=== PATIENT | female | born 1950 | race Caucasian/White ===

== ENCOUNTER 2022-12-12 17:30 | Outpatient (RCR) | payer SELFPAY | END 2022-12-19 23:59 | LOC: NS 17:30 | DX: Z71.3 Dietary counseling and surveillance (principal); E11.9 Type 2 diabetes mellitus without complications ==

== ENCOUNTER 2023-01-18 07:08 | Observation (INO) | payer MEDICARE, SELFPAY ==
--- NOTE | 2023-01-12 13:58 | PCM.HP.BLA ---
History and Physical History and Physical? Patient Name: Margo Zamarripa : 1950 From:? PHOEBE PARIKH PA-C? DATE OF PRE-OPERATIVE EXAM: 01/11/2023 DATE OF SURGERY:? 01/18/2023 SCHEDULED PROCEDURE:? Robotic-assisted left total hip arthroplasty HISTORY OF PRESENT ILLNESS: Preoperative history and physical exam was performed on January 11, 2023.? This is a 72-year-old female who was initially scheduled to undergo a robotic-assisted left total hip arthroplasty on December 20, 2022.? Surgery was initially canceled as she had vaginal bleeding.? She was then worked up and we now have appropriate clearance from the primary care physician.? We are able to proceed forward with surgery now.? Patient has had ongoing pain for over 2 years with her left hip.? Pain has been constant, intermittent, sharp.? She gets left groin pain.? Pain is increased with walking, standing and going up and down stairs.? Patient states the pain has significantly affected her activities of daily living including leisurely walks and shopping.? She has had a previous left hip intra-articular injection on September 16, 2022 which only gave her only 2 weeks of any symptom relief.? Patient denies past history of surgery on the left hip.? She also denies any recent chest pain, shortness of breath, fevers chills or recent infections.? No past history of DVT or pulmonary embolism.? After failing conservative measures and discussing all treatment options was Dr. Won Newman, the patient does wish to proceed with a robotic-assisted left total hip arthroplasty.? Patient has medical exam pertinent for gastroesophageal reflux disease.? She also has significant low back pain with spinal stenosis.? She has had previous surgeries on her lumbar spine.? We have obtain surgical clearance from the primary care provider Marcia Estrella. REVIEW OF SYSTEMS: Review Of Systems: Constitutional: Denies anorexia, change in appetite, fever, difficulty sleeping, weight change. Cardiovasular: Reports irregular heartbeat, but denies chest pain, heart murmur and peripheral vascular disease. Respiratory: Denies asthma, cough, pneumonia, sleep apnea, shortness of breath, tuberculosis and wheezing. Gastrointestinal: Reports heartburn, but denies constipation, diarrhea, nausea, rectal itching, bloody stools and vomiting. Genitourinary: Denies incontinence. Musculoskeletal: Reports leg swelling and pain, but denies trouble walking and weakness. Skin: Denies Raynaud's, history of shingles and tattoo. Neurological: Reports numbness/tingling but denies ambulatory dysfunction, dizziness and tremor. Psychiatric: Denies anxiety, depression, insomnia, mental illness and stress. Hematologic/Lymphatic: Denies anemia, bleeding/bruising tendency and past transfusion. Reviewed and updated. PAST MEDICAL HISTORY: Advance Care Plan: No Advance Directives Effective Date: 09/12/2022 Past Medical History: Medical Problems: Irregular Heart Beat, Acid Reflux Accidents: None Surgical Hx: Tonsillectomy - (1973) [facility] [place] Removed - (1994) [facility] Section - (1987) [facility] Laproscopy - (1976) [facility]-? FOR INFERTILITY ISSUES Carpal Tunnel Release RT - 02/22/13-[facility] Knee Replacement RT - (2018) [facility] ? Hernitated Disc Surgery - (05/2021) [facility] DR.SCOTT FERMIN? Spinal Stenosis Surgery - (2021) [facility] DR.SCOTT FERMIN? Left Hip Fluoroscopic-Guided Intraarticular Injection - (09/16/2022) DR. NEWMAN @ [facility]? Cataracts - (2022) LT & RT? Anesthesia Complications: Nausea Assistive Devices: None Reviewed and updated. 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 Personal Habits:? Cigarette Use: Never Smoked Cigarettes.Smokeless Tobacco: Never Used Smokeless Tobacco.E-Cigarette Use: Never used.Alcohol: Denies use.Drug Use: Denies Use.Enjoy Exercising: Exercises 1-3 X/Week. Reviewed, no changes. VITALS: Ht: 72 Wt: 202lb Wt k.627 BMI: 27.4 BP: 134/78 Pulse: 72 Resp: 13 T: 97.5 T: 36.4C Pain Level: 2 O2SatR: 94 ALLERGIES: No Known Drug Allergy? MEDICATIONS: Tiazac 120 mg 1 tab daily, Digoxin 0.25 mg 1 tab daily, Vitamin C? 1 tab daily, Aspirin 81 81 mg takes 1 tablet by mouth every other day, Vitamin D3? 1 PO qdaily, CV[facility] Adult 50+ Probiotic? 1 PO qdaily, Venlafaxine HCL ER 75 mg 1 PO qdaily, Omeprazole 20 mg 1 PO qdaily PRE-OP EXAM:? General appearance:NORMAL? ? ? Other: Eyes: Conjunctivae and lids: NORMAL? Pupils: ERR Ears, Nose, Mouth, and Throat: NORMAL? Other: Inspection of lips, teeth and gums: NORMAL? ?Other: Neck: Examination of neck: no masses noted. Respiratory: Assessment of respiratory effort: NORMAL? ?Other: ?Auscultation of lungs: clear to auscultation no wheezes, rhonchi or rales. Cardiovascular:? Auscultation of heart: regular rate and rhythm, no murmurs, gallops or rubs. PHYSICAL EXAMINATION: Patient does walk with a limping gait.? Left hip is without erythema or signs of infection.? Range of motion: Flexion 105, internal rotation 10, external rotation 35.? She has increased groin pain with range of motion.? No significant tenderness over the lateral hip.? Sensation intact to light touch. IMAGING STUDIES: Previous x-rays and MRI of the hip are consistent with stage III osteoarthritis with chondral erosion and labral tearing.? Lumbar images also revealed fusion and left-sided disc protrusions and foraminal stenosis. IMPRESSION: 1.? Left hip osteoarthritis 2.? Gastroesophageal reflux disease 3.? Previous lumbar surgery 4.? Unspecified arrhythmia PLAN: Dr. Won Newman did discuss and review with the patient all treatment options including surgical versus nonsurgical options.? Patient does wish to proceed with the above-stated procedure.? Potential risks, benefits, and complications of the procedure were discussed in detail including but not limited to , infection, nerve and blood vessel damage, persistent pain, numbness, tingling, paresthesias, blood clot, pulmonary embolism, and requirement for possible further surgery.? The patient expressed full understanding and has no further questions for the doctor.? Patient does agree to proceed with the above-stated procedure and has signed the surgery consent form. POST-OP MEDICATION PLAN: DVT Prophylaxis:? Aspirin 81 mg twice daily for 4 weeks postoperatively.? Denies past history of DVT or pulmonary embolism This dictation was created using voice recognition software. Phonetic and/or grammatical errors may exist. ___? I have re-examined the patient.? There are no clinical changes since date of exam. ___? See progress notes for changes. ___? Dictated on admission Date: ? ? ?Time: Signature:
[2023-01-18] VITALS (17 sets, daily range): BP systolic 98–135; BP diastolic 56–75; PULSE 59–73; RESP 14–20; TEMP 35.9–36.9; O2SAT 93–100; BMI 28.7
[2023-01-18] MEDS: Acetaminophen 500 MG Tablet 1000 MG PO ×3 (06:28→22:02)
[2023-01-18] MEDS: Gabapentin 600 MG Tablet PO (06:28)
[2023-01-18] MEDS: Lactated Ringers 1,000 ML 999 ML IV ×2 (06:28→11:21)
[2023-01-18] MEDS: Celecoxib 200 MG Capsule 400 MG PO (06:28)
--- NOTE | 2023-01-18 06:30 | RAD_ITS ---
EXAM: XR LEFT HIP WITH PELVIS WHEN PERFORMED, 1 VIEW CLINICAL INDICATION: PAIN TECHNIQUE: Frontal view of the left hip with pelvis when performed. COMPARISON: No relevant prior studies available. FINDINGS: BONES/JOINTS: Images were obtained intraoperatively. These show placement of a left hip prosthesis. No displaced fracture. No destructive or sclerotic lesions. Note that overlapping bowel shadows may however obscure fine detail. Sacroiliac joint is unremarkable. No widening of the pubic symphysis. SOFT TISSUES: Unremarkable. No soft tissue swelling or gas. RAD/Hip 1 view with Pelvis IMPRESSION: Intraoperative placement of a left hip prosthesis Electronically Signed: Noah Andrew MD at 21:51 EDT ,
[2023-01-18 06:33] LABS: Bedside Glucose 116 mg/dL (74-106)
[2023-01-18 06:40] LABS: Magnesium 2.3 mg/dL (1.6-2.6)
[2023-01-18] MEDS: Lactated Ringers 1,000 ML 75 ML IV (06:56)
[2023-01-18] MEDS: Magnesium 1 GM over 15 mins IV (07:04)
--- NOTE | 2023-01-18 07:04 | OP.PCM_ITS ---
Report of Operation Date of Procedure: 01/18/23 Pre-Operative Diagnosis: Left hip primary osteoarthritis Post-Operative Diagnosis: Left hip primary osteoarthritis Surgery/Procedure Performed:: Left minimally invasive direct anterior hip replacement Description of Surgical Findings:: Stable hip with equal leg lengths Surgeon: Won Newman sports media: Kyile Tadeo Type of Anesthesia: Spinal Special Medications: 2 g Ancef, 1 g TXA at incision, 1 g TXA closure, 10 mg Decadron, joint cocktail (5 mg Duramorph, 30 mL of 0.5% Ropivicaine, 1000 units of epinephrine, 30 mg of Toradol) Specimen's removed: Bony cuts Description of Procedure: Components used: 1. Insignia Teresa femoral stem size 6 high offset 2. Teresa trident 2 acetabular shell size 52 mm 3. Teresa X3 polyethylene 42 E MDM 4. [place] Biolox delta 28 mm, 0 mm femoral head with C taper sleeve 5. Teresa MDM cobalt-chromium metal liner E Brief history operative indications: 72 yo F who failed conservative measures for their hip osteoarthritis. X-rays were consistent with osteoarthritis including joint space narrowing, osteophyte formation and subchondral cysts. Total hip replacement was discussed with the patient with risks and benefits including but not limited to blood loss, DVTs, P Es, neurovascular damage, dislocation, general risks of anesthesia including loss of life. Patient demonstrated an understanding medical clearance is obtained the patient was consented for surgery. Procedure: On the date of procedure the patient's L hip was marked in the preoperative area. Patient was then taken back to the operating room where anesthesia assumed control of the C-spine and airway and administered anesthetic. Patient was transferred to the operating table and placed in the supine position. The hips were placed at the break of the bed and a sacral bump was placed. L The lo wer extremity was then prepped out in a sterile fashion using chlorhexidine while the surgeon scrubbed. The PA was vital in the positioning of the patient. Upon reentering the room the left lower extremity was draped in the standard orthopedic fashion and the incision was marked. A timeout was called and everyone agreed upon the side, the site, the procedure be performed, antibody given, and patient's identity. At this time pins were placed in the iliac crest making skin nicks and blunt dissection down to the iliac crest. After the pins were placed the pelvic array was placed. Following this our attention was directed to the surgical site and incision was made through skin, subcutaneous tissue, and fat down to fascia. The fascia was then incised and the TFL was retracted laterally. A retractor was placed on the lateral border of the femoral neck. Attention was directed to the inferior portion of the approach and all crossing vessels were identified and appropriately coagulated. A retractor was then placed on the medial portion of the femoral neck. The anterior capsule was then cleared of all soft tissue and then H shaped capsulotomy was made. The retractors were then placed inside the capsule. The femoral neck was identified and a cleanup cut was made. At this time a power corkscrew was used to remove the femoral head. Attention was then turned toward the acetabulum where the soft tissues were appropriately retracted and the acetabulum was registered using the [employer] robotic system. After registration the robotic arm was brought in and used to reamed the acetabulum to 52 mm. A 52 mm cup was then selected and impacted into place using the robotic arm at 20 degrees anteversion and 40 degrees abduction. 1 screw was placed in the safe zone. Acetabular liner was impacted into place and locking mechanism was verified. After completing the acetabular cup position placement pins were removed and surgery proceeded to the femur. Attention was then turned to the femur. Soft tissue releases on the medial and lateral femoral neck were appropriately done, the leg was externally rotated and lateralized. A Cooney retractor was placed medially and proximally to the greater trochanter this allowed appropriate visualization and exposure of the femoral canal. Rongeour was then used to remove excess lateral bone. A canal finder and entry broach were used to open the proximal canal. Once we verified we were down the femoral canal we subsequently broached up to a size 6 femur. The appropriate neck was placed in the previously selected head was trialed with a -2.5 mm neck. Traction was pulled and the hip was reduced with internal rotation. Once it was appropriately reduced and stability was checked. There was minimal shuck, equal leg lengths and appropriate stability with hyperextension and external rotation as well as with 90? flexion and internal rotation. Fluoroscopy was then also used to verify the position of the components and leg lengths using the contralateral side for comparison. The trial components were then dislocated the proximal femur was again exposed and the components were removed from the wound. The final components were verified and opened. The wound was copiously irrigated out with normal saline. The acetabulum was checked for any residual debris. The final components were placed and impacted. Traction and internal rotation were again used to reduce the hip. After adequate reduction the hip remained stable with appropriate leg lengths. The final components were once again checked with live fluoroscopy and were found to be satisfactory. We then checked stability of the final implants. Patient had good stability with extension and external rotation. However with flexion she began to lever out and dislocated. Happened unexpectedly the first time we reduced it and then attempted a second time to obtain the point where dislocated. Upon dislocation the second time the femoral head became entrapped posteriorly. We were unable to reduce it even using a bone hook. We then dissociated the head from the stem. The stem was then removed and we had to bluntly dissected into the posterior hip and remove the head by palpation. In order to do this we did release along the acetabular outer table proximal to the origin of the abductors. Once we are able to retrieve this we then replaced the femoral stem remove the polyethylene liner and placed in MDM liner. We then trialed with a +0 which based on medial malleoli gave us an appropriate leg lengths. This gave us stability with extension and external rotation. Also had good stability with flexion and internal rotation to 30 degrees. Once we are happy with this and can flex hip beyond 90 degrees the hip was dislocated and the trial components were removed. Final components were assembled on the back table for the MDM head and the hip was reduced. We also elected to use a C taper liner for the second ceramic head. The wound was then copiously irrigated with normal saline once more, and hemostasis was obtained. Closure was then done using #1 Vicryl runner to close the fascia. A 2-0 vicryl interuppted sutures were used to close the subcutaneous skin. Nylon sutures were used for final skin closure. A Silverlon dressing was placed. Patient was awakened by anesthesia and transferred to the [facility]. Patient was then trans ferred to the PACU for recovery. During the course of the procedure the physician adolescent specialist (PE) played a vital role. Their intimate knowledge of my steps in the procedure aided in safe and expedient completion of the procedure. The PE played a vital rolls in positioning particularly in obtaining the appropriate positioning of the sacral bump. The PE was also vital in the retraction of soft tissues during the exposure and especially the femoral work as this is a vital part of the procedure to prevent complications and fractures. The PE was also vital and protecting soft tissues during times of bony cuts and reaming. He also played a vital role in closure with my direct supervision. The PE was also important during reduction and dislocation of the joint and trials intraoperatively. Postoperative plan: Patient will get 24 hours postop antibiotics. Patient will get in-house physical therapy and will be weight-bear as tolerated. Patient will follow up in office in 2 weeks for a wound check and x-rays. Aspirin 81 mg twice daily. Complications No intraoperative complications Admit VTE Documentation VTE Present on Admission: No VTE Mechan Device Prophylaxis: SCD's and Thigh High VICKI Hose VTE Pharm Prophylaxis ordered?: Yes
[2023-01-18] MEDS: Cefazolin 2 GM in 0.9% Normal Saline 100 ML IV (07:30)
--- NOTE | 2023-01-18 07:30 | HIP_PTH ---
PATIENT: HAYDEN CASTORENA LOC: MS3 U#:[id number] AGE/SX: 72/F ROOM: [facility] RE01/18/[address]: Dr. Won Newman MD : 1950 BED: 1 DIS: 01/19/2023 SPEC #: [id number] RECD: 01/18/23 11:45 STATUS: TA JAINBecky #: [id number] JESSY: 01/18/23 07:[address]: Won Newman DEPT: SURGICAL PATHOLOGY RECD BY: Clarissa Everett ENTERED: 01/18/23 12:53 SP TYPE: TOTAL HIP OTHR DR: Marcia Estrella, RONNI Tissues: Hip, NOS Procedures: Decalcification bone/plaque Surgery Specimen Level IV HEADER OPERATION: DIONICIO, robotic assisted left total hip arthroplasty PRE-OP DIAGNOSIS: Left hip osteoarthritis TISSUE SUBMITTED: Left hip bone and tissue MICROSCOPIC DIAGNOSIS Left hip bone and soft tissue, total hip replacement/resection: Femoral head with mild degenerative osteoarthritic changes. Fragments of fibroadipose tissue and fibroconnective tissue. LISA:avril 01/25/2023 COMMENT Case has been reviewed in consultation with Dr. Echevarria who concurs with the above diagnosis. IDC:AM MICROSCOPIC DESCRIPTION Slides are reviewed. GROSS DESCRIPTION Received is one container labeled with the patient's name and designated bone and tissue left hip. The specimen consists of a kapoor femoral head measuring 4.5 x 4.5 x 4.0 cm. Also present in the container is a detached piece of bone consistent with femoral neck measuring 4.0 x 3.5 x 1.0 cm. The articular surface displays minimal erosion and osteophyte formation. Also present in the specimen container are multiple irregular fragments of bone reamings and pink-yellow soft tissue measuring in aggregate 6.0 x 7.0 x 2.0 cm. Department Operations Manager sections are submitted in two cassettes as follows: 1 - soft tissue, 2 - bone after decalcification. / LISA:avril 01/18/2023 More sections are submitted from femoral head in cassettes 3 & 4 after decalcification. / LISA:avril TC:5 CPT: 14188, 55418
[2023-01-18] MEDS: TXA 1000mg in NS100 100ml (IVPB at Incision) 660 MG IV (07:45)
[2023-01-18] MEDS: dexAMETHasone 10 MG/ML Vial IV (07:47)
[2023-01-18 07:54] LABS: Digoxin Level 0.78 ng/mL (0.80-2.00)
[2023-01-18] MEDS: TXA 1000mg in NS100 100ml (IVPB at Closure) 660 MG IV (10:21)
[2023-01-18] MEDS: JPS (Morphine 10mg/ml) OPERA.SITE (10:26)
--- NOTE | 2023-01-18 11:17 | RAD_ITS ---
HISTORY Post Op -- AP both hips on single khadra/lateral of op hip PACU. TECHNIQUE: XR Hip Unilateral with Pelvis when performed; 2-3 Views. COMPARISON: None. FINDINGS: BONES : No acute fracture identified. No abnormal periprosthetic lucency seen. JOINTS: Left hip in place without dislocation. Blank SOFT TISSUES: Expected postoperative air and edema. RAD/Hip Min 2 Views (Portable) IMPRESSION: Satisfactory postoperative alignment of left hip arthroplasty. Electronically Signed: Joy Copeland MD at 12:20 EDT ,
[2023-01-18] MEDS: Senna/Docusate Sodium 1 Tablet 2 TABLET PO ×2 (13:46→22:02)
[2023-01-18] MEDS: dilTIAZem CD 120 MG Capsule PO (13:46)
[2023-01-18] MEDS: Digoxin 250 MCG Tablet PO (13:46)
[2023-01-18] MEDS: Ondansetron 4 MG/2 ML Vial IV (13:50)
[2023-01-18] MEDS: Famotidine 20 MG Tablet PO (13:51)
[2023-01-18] MEDS: Venlafaxine XR 75 MG Capsule PO (13:51)
[2023-01-18] MEDS: Pantoprazole Sodium 20 MG Tablet PO (13:51)
[2023-01-18] MEDS: Cefazolin 1 GM/50 ML BAG IV (15:08)
[2023-01-18] MEDS: oxyCODONE 5 MG Tablet PO (15:16)
--- NOTE | 2023-01-18 15:37 | PCM.PN.HOSP ---
Subjective Subjective 72-year-old female presents to the hospital with a history of primary hip osteoarthritis on the left status post left anterior hip replacement. Doing well after surgery, pain is controlled. Objective Data Objective Data Vital Signs: Vital Signs Temp Pulse Resp BP Pulse Ox O2 Del Method O2 Flow Rate 97.7 F L 70 18 102/59 L 95 Room Air 2 01/18/23 15:22 01/18/23 15:22 01/18/23 15:22 01/18/23 15:22 01/18/23 15:22 01/18/23 15:22 01/18/23 13:20 Oxygen Flow Rate (L/min) 2 Oxygen Delivery Method Room Air Weight: 206 lb Body Mass Index (BMI) 28.7 Intake & Output: Intake and Output for Last 24 Hours 01/17/23 01/18/23 01/19/23 03:59 03:59 03:59 Intake Total 4087 / 4087 Output Total 200 / 200 Balance 3887 / 3887 Lab / Micro Data Labs: Laboratory Results - last 24 hr 01/18/23 06:06: POC Glucose 116 H 01/18/23 06:15: Magnesium 2.3, Digoxin Cancelled 01/18/23 06:35: Digoxin 0.78 L Radiography Diagnostic Testing: Radiology Impression Hip X-Ray 01/18/23 11:17 IMPRESSION: Satisfactory postoperative alignment of left hip arthroplasty. Electronically Signed: Joy Copeland MD at 12:20 EDT Reading Location ID and State: [facility] / [place] Tel , Service support , Physical Exam Narrative General: Alert, Oriented x3, Cooperative, No apparent distress HEENT: Atraumatic, PERRLA, EOMI, Normocephalic Oral: Moist Mucosa Neck: Supple, No JVD Lungs: Clear to auscultation, Normal air movement, No rhonchi, No wheeze, No rales Cardiovascular: Regular rate, Regular Rhythm, Normal S1, Normal S2, No murmurs Abdomen: Soft, Non Tender, Non-Distended, No Hepato-splenomegaly Extremities: No edema, Capillary Refill Less than 3 Seconds Skin: Dressing CDI Musculoskeletal: No Tenderness to Palpation of Joints or Extremities Neurological: Cranial nerves II-XII grossly intact, Motor Exam 5/5 strength throughout, Sensory exam intact to light touch and pain Psych/Mental Status: Normal Affect, Appropriate Assessment & Plan Assessment/Plan (1) Status post left hip replacement: PLAN: Plan 1. Status post left anterior hip replacement for osteoarthritis ? Pain management per primary ? PT/OT ? DVT prophylaxis per primary ? Discharge planning per primary 2. HTN/A-fib ? This all seems stable, her digoxin level was little bit low this can be monitored as an outpatient ? Continue with her Cardizem and her digoxin 3. GERD ? Stable ? Continue with PPI 4. Anxiety/depression ? Stable ? Continue with Effexor Charges/Coding Visit Charges Office Visits / Consults: 97272 OV L3 New
[2023-01-18] MEDS: Aspirin 81 MG TAB.CHEW PO (17:56)
[2023-01-19] MEDS: Cefazolin 1 GM/50 ML BAG IV (00:25)
[2023-01-19 01:24] VITALS: BP 115/68; PULSE 82; RESP 16; TEMP 36.8; O2SAT 92
[2023-01-19 05:23] VITALS: BP 95/59; PULSE 66; RESP 16; TEMP 36.8; O2SAT 93
[2023-01-19] MEDS: Acetaminophen 500 MG Tablet 1000 MG PO (05:49)
[2023-01-19 06:57] LABS: Hematocrit 35.4 % (37-47); Hemoglobin 11.5 g/dL (12.0-15.0); Mean Corp Hgb Conc 32.5 g/dL (32-36); Mean Corpuscular Hgb 30.6 pg (27.0-32.0); Mean Corpuscular Volume 94.1 fL (81-99); Mean Platelet Vol. 10.6 fl (6.2-12.0); Platelet Count 223 K/mm3 (150-450); RBC Distribution Width CV 13.2 % (11.6-14.6); RBC Distribution Width SD 45.4 fl (35.1-43.9); Red Blood Count 3.76 M/mm3 (4.2-5.4); White Blood Count 17.1 K/mm3 (4.4-11.0)
[2023-01-19 07:19] LABS: Anion Gap 5 (5-15); BUN 15 mg/dL (7-18); BUN/Creat Ratio 15.9 RATIO (10-20); Calcium,Total 8.3 mg/dL (8.5-10.1); Chloride 103 mmol/L (98-107); Creatinine, Serum 0.95 mg/dL (0.55-1.02); EST Glomerular Filtration Rate 62 mL/min (>60); Est Glom Filt Rate - Afr Amer 75 mL/min (>60); Estimated Creatinine Clearance 60.71 ml/min; Glucose 139 mg/dL (74-106); Sodium Level 133 mmol/L (136-145)
[2023-01-19 09:00] VITALS: BP 101/55; PULSE 67; RESP 18; TEMP 36.9; O2SAT 94
[2023-01-19] MEDS: Pantoprazole Sodium 20 MG Tablet PO (09:06)
[2023-01-19] MEDS: Venlafaxine XR 75 MG Capsule PO (09:06)
[2023-01-19] MEDS: Senna/Docusate Sodium 1 Tablet 2 TABLET PO (09:06)
[2023-01-19] MEDS: Ensure Surgery 237 ML LIQUID PO (09:06)
[2023-01-19] MEDS: Digoxin 250 MCG Tablet PO (09:06)
[2023-01-19] MEDS: dilTIAZem CD 120 MG Capsule PO (09:06)
[2023-01-19] MEDS: Aspirin 81 MG TAB.CHEW PO (09:06)
[2023-01-19] MEDS: Famotidine 20 MG Tablet PO (09:06)
--- NOTE | 2023-01-19 09:57 | CASEMGMT ---
Met with patient to complete LEW form. LEW form explained to patient who voiced understanding and signed form. Original form placed in pt?s chart and copy provided to patient. Ghada Cardenas, Discharge Planning Asst.
--- NOTE | 2023-01-19 10:28 | PCM.PN.HOSP ---
Reason for Visit Reason for Visit: Diagnoses Encounter for other preprocedural examination (01/18/23) Presence of left artificial hip joint (01/18/23) Subjective Subjective Feels fine. No new issues. Objective Data Objective Data Vital Signs: Vital Signs Temp Pulse Resp BP Pulse Ox O2 Del Method O2 Flow Rate 36.9 C 67 18 101/55 L 94 Room Air 2 01/19/23 09:00 01/19/23 09:00 01/19/23 09:00 01/19/23 09:00 01/19/23 09:00 01/19/23 09:00 01/18/23 13:20 Oxygen Flow Rate (L/min) 2 Oxygen Delivery Method Room Air Weight: 93.44 kg Body Mass Index (BMI) 28.7 Intake & Output: Intake and Output for Last 24 Hours 01/17/23 01/18/23 01/19/23 23:59 23:59 23:59 Intake Total 4087 / 4587 950 / 950 Output Total 200 / 200 Balance 3887 / 4387 950 / 950 Lab / Micro Data 01/19/23 06:25 01/19/23 06:25 Labs: Laboratory Results - last 24 hr 01/19/23 06:25: WBC 17.1 H, RBC 3.76 L, Hgb 11.5 L, Hct 35.4 L, MCV 94.1, MCH 30.6, MCHC 32.5, RDW Std Deviation 45.4 H, RDW Coeff of Lis 13.2, Plt Count 223, MPV 10.6, Sodium 133 L, Potassium 4.0, Chloride 103, Carbon Dioxide 25.0, Anion Gap 5, BUN 15, Creatinine 0.95, Estim Creat Clear Calc 60.71, Est GFR (MDRD) Af Amer 75, Est GFR (MDRD) Non-Af 62, BUN/Creatinine Ratio 15.9, Glucose 139 H, Calcium 8.3 L Radiography Diagnostic Testing: Radiology Impression Hip/Pelvis X-Ray 01/18/23 06:30 IMPRESSION: Intraoperative placement of a left hip prosthesis Electronically Signed: Noah Andrew MD at 21:51 EDT , Hip X-Ray 01/18/23 11:17 IMPRESSION: Satisfactory postoperative alignment of left hip arthroplasty. Electronically Signed: Joy Copeland MD at 12:20 EDT , Physical Exam Const alert and no apparent distress HEENT head/scalp atraumatic and moist oral mucous membranes Resp normal respiratory effort and no retractions Assessment & Plan Assessment/Plan (1) Irregular heart beat: PLAN: Patient states that she was diagnosed with irregular heartbeat in the mid 90s. Never saw plate painter apprentice but has never been told that she has atrial fibrillation. Reviewed patient had EKGs x2 last month that were both sinus rhythm. Continue with digoxin and diltiazem. Patient states that she has been stable for some period of time. Unless patient has recurrent episodes, no cardiology consultation needed at this time though that could be deferred on outpatient basis. PLAN: Plan Status post left hip replacement. Management per orthopedics. VTE prophylaxis with twice daily aspirin. Charges/Coding Visit Charges Inpatient E&M: 53533 Subs Hosp L2
--- NOTE | 2023-01-19 10:50 | CASEMGMT ---
LIYAH HEART Assessment: Face to Face with pt for initial transition planning/care coordination assessment. LIYAH HEART introduced self and role at [facility], pt voices understanding and consents to assessment. Pt is A/O x4 and answers all questions appropriately at this time. Pt lying in bed in no distress. Care providers, pharmacy, and demographics verified/updated. Admitting Dx: robotic assisted left total hip arthroplasty PCP:Marcia Estrella NP Specialists:Shi Bonilla; surekha Newman Pharmacy[facility]: yes LNOK: Emir Zamarripa, Living Arrangements: Pt lives with in a basement of a two story. Pt states she lives below [facility] and employees usually stay up top. There are 17 steps to enter the basement with a rail. Pt reports she was I in ADL's prior to surgery. Pt denies concerns at home. Transportation: Pt drives self and denies concerns with transportation. Pt will transport her to medical appts until she is able. DME/HHC/SNF: Pt has a sock aid, FWW, toilet riser and environmental lead. Pt has had HHC in the past but is unsure of the name of the agency. Pt denies SNF stays. Pt states no concerns with going home at time of dc. She has outpt therapy set up at [facility] for Monday. Pt states her dtr is an OT and is available should she need anything. Pt states no further concerns/needs. CM to follow. Advised pt to ask CM if any further question/concerns/needs arise, voices understanding. Pt Goal: Home with outpt therapy already set up Plan: Home with outpt therapy already set up
--- NOTE | 2023-01-19 11:43 | PCM.PN.ORT ---
Subjective Subjective The patient was sitting in bed upon examination. Patient denies any chest pain, shortness of breath, dizziness, lightheadedness, nausea or vomiting, or calf pain. Pain is controlled on medications. No adverse overnight events. Patient has tolerated therapy very well. She denies any dizziness or lightheadedness. She has some soreness in the thigh. Denies any significant buttock pain. She states she does wish to try to go home today. Objective Data Objective Data Vital Signs: Vital Signs Temp Pulse Resp BP Pulse Ox O2 Del Method O2 Flow Rate 98.5 F 67 18 101/55 L 94 Room Air 2 01/19/23 09:00 01/19/23 09:00 01/19/23 09:00 01/19/23 09:00 01/19/23 09:00 01/19/23 09:00 01/18/23 13:20 Oxygen Flow Rate (L/min) 2 Oxygen Delivery Method Room Air Weight: 93.44 kg Body Mass Index (BMI) 28.7 Intake & Output: Intake and Output for Last 24 Hours 01/17/23 01/18/23 01/19/23 23:59 23:59 23:59 Intake Total 4087 / 4587 950 / 950 Output Total 200 / 200 Balance 3887 / 4387 950 / 950 Lab / Micro Data 01/19/23 06:25 01/19/23 06:25 Labs: Laboratory Results - last 24 hr 01/19/23 06:25: WBC 17.1 H, RBC 3.76 L, Hgb 11.5 L, Hct 35.4 L, MCV 94.1, MCH 30.6, MCHC 32.5, RDW Std Deviation 45.4 H, RDW Coeff of Lis 13.2, Plt Count 223, MPV 10.6, Sodium 133 L, Potassium 4.0, Chloride 103, Carbon Dioxide 25.0, Anion Gap 5, BUN 15, Creatinine 0.95, Estim Creat Clear Calc 60.71, Est GFR (MDRD) Af Amer 75, Est GFR (MDRD) Non-Af 62, BUN/Creatinine Ratio 15.9, Glucose 139 H, Calcium 8.3 L Radiography Diagnostic Testing: Radiology Impression Hip/Pelvis X-Ray 01/18/23 06:30 IMPRESSION: Intraoperative placement of a left hip prosthesis Electronically Signed: Noah Andrew MD at 21:51 EDT , Hip X-Ray 01/18/23 11:17 IMPRESSION: Satisfactory postoperative alignment of left hip arthroplasty. Electronically Signed: Joy Copeland MD at 12:20 EDT , Physical Exam Narrative Vital signs stable and afebrile. SCDs and VICKI hose are in place bilaterally Left hip is soft and supple. No buttock pain. She does complain of some thigh discomfort Patient is able to plantarflex and dorsiflex actively. Sensation is intact to light touch to saphenous, sural, superficial and deep peroneal, and tibial distribution. Dressing is clean dry and intact. Patient does have underwear in which the elastic band comes across the distal one third of the incision. I did explain to the patient that I would like her to protect this once the dressing has been removed. She can use an ABD, 4 x 4 dressing, clean washcloth at home. She voiced understanding agreement. Negative Homans bilaterally, negative signs and symptoms of DVT. Const alert, oriented x3 and no apparent distress Assessment & Plan Assessment/Plan (1) Status post left hip replacement: PLAN: 1. S/P left direct anterior total hip arthroplasty POD #1 2. Continue Pain Medications: Tylenol, meloxicam, oxycodone. Do not take any other nonsteroidal anti-inflammatories while using meloxicam/Mobic. 3. DVT Prophylaxis: Take 81 mg aspirin twice daily for 4 weeks postoperatively for DVT prophylaxis. Denies past history of DVT or pulmonary embolism 4. PT/OT: Weightbearing as tolerated with walker 5. Lab work has been reviewed and patient currently stable. She does have reactive leukocytosis currently 17.1, afebrile. She did receive Decadron intraoperatively. 6. Continue postoperative medical management per medicine: 7. Encouraged Incentive Spirometry 8. Disposition: Plan will be for probable discharge home this afternoon as long as patient is doing well with physical therapy, pain is controlled, and medically stable. She has outpatient physical therapy established. Patient will follow-up per postoperative instructions. She would like her medications E scribed to [facility] pharmacy in [facility]. Upon discharge she will contact her office with any concerns or questions. She initially did well with physical therapy this morning. She denies any dizziness or lightheadedness. I have reviewed the [place] Automated Rx Reporting System (OARRS) report for this patient for refill pattern and other prescriber involvement as part of the appropriate surveillance for the provision of acute and chronic controlled medications. The report was requested and reviewed on the date of this entry and was considered in the prescribing process. This dictation was created using voice recognition software. Phonetic and/or grammatical errors may exist.
--- NOTE | 2023-01-19 11:48 | PCM.DC ---
Discharge Instructions Diet Discharge Diet: No restrictions Activity Discharge Activity: May Not Drive (while taking narcotic pain medications.) May shower in (days): 1 (only if incision is dry and without drainage. Do NOT soak/submerge in tub/pool/delgadillo/stream/hot tub.)) Ice area for (Minutes): 20 (Every 1-2 hours while awake[address] barrier between ice and skin.) Weight Bearing Status: Weight bearing as tolerated Keep extremity elevated above heart level: Operative Extremity Additional Activity Instructions:: Follow [facility] Post-op Instructions. Once postoperative dressing has been removed only use gentle soap and water over the incision. Do not use any ointments, Neosporin, salves, alcohol pads over the incision for 6 weeks postoperatively. Do not submerge underwater for 6 weeks postoperatively. Wear elastic stockings for 2 weeks. Do NOT use alcohol with narcotic pain medication. Do NOT make important decisions while taking narcotic medication. If you have problems with taking your medication (rash, itching, nausea, etc.) call the office at once. Dressing / Incision Call your doctor if your incision/area has: Continuous Slow Oozing, Sudden Increased Bleeding, Increased Pain/ Swelling, Increased Redness and Foul Smelling Discharge Call your doctor if you observe: Fever of 101 or Higher, Shortness of breath, Chest pain, Calf discomfort and Uncontrolled pain Remove Dressing in: 4 days (Okay to remove dressing on January 23, 2023. Must protect the incision from elastic band on underwear using 4 x 4 dressing, ABD, or clean washcloth.) Additional Dressing/Incision Instructions:: Follow [facility] Post-op Instructions. Once postoperative dressing has been removed, only use gentle soap and water over the incision. Do not use any ointments, Neosporin, salves, alcohol pads over the incision for 6 weeks postoperatively. Do not submerge underwater for 6 weeks postoperatively. Continue with VICKI hose/elastic stockings for 2 weeks postoperatively. May remove at nighttime but needs to be placed back on the leg during the day. Do NOT use alcohol with narcotic pain medication. Do NOT make important decisions while taking narcotic medication. If you have problems with taking your medication (rash, itching, nausea, etc.) call the office at once. Follow Up Care Test Results: Test results from this visit will be discussed in further detail at your follow-up appointment, if applicable. Discharge Plan Admission Admit Date/Time: 01/18/23 07:08 Attending Provider: Won Newman Primary Care Provider: Marcia Estrella NP Consulting Providers: Alan Feldman Discharge Orders/Prescriptions Prescriptions: New acetaminophen 500 mg Tablet 1,000 mg PO Q8 14 Days Qty: 84 0RF Rx Instructions: Do not take more than 3000 mg Tylenol in a 24-hour period. aspirin 81 mg capsule 81 mg PO BIDCM 30 Days Qty: 60 0RF Rx Instructions: Take 81 mg aspirin twice daily for 4 weeks postoperatively for DVT prophylaxis. meloxicam 7.5 mg Tablet 7.5 mg PO BID 30 Days Qty: 60 0RF Rx Instructions: Do not take any other nonsteroidal anti-inflammatories while using meloxicam/Mobic. oxycodone 5 mg Tablet 5 - 10 mg PO Q4H PRN PRN (Reason: Pain Score 4-10) 5 Days Qty: 42 0RF sennosides-docusate sodium [Stool Softener-Stimulant Laxat] 8.6-50 mg Tablet 2 tab PO BID 3 Days Qty: 12 0RF Rx Instructions: Take until first bowel movement, then as needed Continued digoxin 250 mcg (0.25 mg) tablet 250 mcg PO DAILY diltiazem HCl 120 mg capsule,extended release 24 hr 120 mg PO DAILY omeprazole 20 mg capsule,delayed release(DR/EC) 20 mg PO DAILY venlafaxine 75 mg capsule,extended release 24hr 75 mg PO DAILY Referrals / Follow Up: Physical,Therapy [Other] - 01/24/23 10:30 am Trey Tadeo PA-C [Med Staff - [facility]] - 02/02/23 4:00 pm Disposition Disposition (needs filled in before D/C Order can be placed): Home, Self Care
[2023-01-19] MEDS: oxyCODONE 5 MG Tablet PO (11:52)
--- NOTE | 2023-01-19 12:26 | CASEMGMT ---
Social Work SW met with pt and spouse and discussed advance directives. Pt states she just completed both a living will and healthcare POA on Monday. HCPOA names her spouse Emir Zamarripa. SW requested this documents be brought to the hospital for scanning into the medical record. Pt agreeable. NIR Turner
--- NOTE | 2023-01-19 12:26 | PHA.DC.MC.R ---
Pharmacy [facility] has performed discharge medication reconciliation and counseling for this patient. The patient was counseled on the following discharge medications and changes in medications for homegoing were reviewed. 1. TYLENOL 2. ASPIRIN 3. MELOXICAM 4. OXYCODONE 5. SENNA-S The Reason for Use, instructions for use, and potential side effects were reviewed for all new medications. The patient's questions regarding all of their medications were answered. The patient was able to verbally demonstrate an understanding of their discharge medications. The patient's discharge medication list was reviewed for discrepancies and discrepancies were resolved. Patient was counselled by Merry Addison, Francisco Candidate
[2023-01-19 12:30] VITALS: BP 102/54; PULSE 70; RESP 18; TEMP 37; O2SAT 95
== END 2023-01-19 13:04 | disposition home or self-care (01) ==
LOC: ACINP 08:26 → SDC 10:02 → MS3 10:02
PROVIDERS: Anesthesiology; Admitting Provider Specialist; PCP Nurse Practitioner Family; Referring Provider Specialist; Visit Provider Specialist
PROC: 8E0Y0CZ Robotic Assisted Procedure of Lower Extremity, Open Approach (ICD-10-PCS; CPT 27130; principal; 2023-01-18 07:00)
DX: M16.12 Unilateral primary osteoarthritis, left hip (principal); K21.9 Gastro-esophageal reflux disease without esophagitis; M48.061 Spinal stenosis, lumbar region without neurogenic claudication; I49.9 Cardiac arrhythmia, unspecified; Z79.899 Other long term (current) drug therapy
CPT/HCPCS: 27130; S2900; 01214; 36415; 73501; 73502; 76000; 80048; 80162; 82962; 83735; 85027; 88305; 88311; 94668; 96365; 96366; 96375; 97110; 97116; 97162; 97166; 97530; 97535; 99221; 99252; C1776; J7120; G0378; G0463; J2405; J3475

== ENCOUNTER → 2023-03-06 | Outpatient (CLI) | payer MEDICARE, SELFPAY ==
[2023-03-06 15:32] LABS: Erythrocyte Sedimentation Rate 10 mm/hr (0-30)
[2023-03-06 15:34] LABS: Absolute Lymphocyte Count 3.09 X10^3/uL (0.83-4.51); Absolute Neutrophil Count 3.4 X10^3/uL (2.0-7.7); Basophil# 0.04 X10^3/uL; Basophil% 0.5 % (0-1); CRP 4.91 mg/L (0.0-3.0); Eosinophil# 0.26 X10^3/uL; Eosinophils% 3.5 % (0-5); Hematocrit 47.3 % (37-47); Hemoglobin 14.9 g/dL (12.0-15.0); Lymphocyte # 3.09 X10^3/ul (0.83-4.51); Mean Corp Hgb Conc 31.5 g/dL (32-36); Mean Corpuscular Hgb 29.9 pg (27.0-32.0); Monocyte# 0.64 X10^3/uL; Monocyte% 8.5 % (0-10); NRBC Flagged by Analyzer 0 % (0-5); Neutrophil # 3.43 X10^3/uL (2.7-7.7); Neutrophil % 45.6 % (47-70); Platelet Count 328 K/mm3 (150-450); RBC Distribution Width CV 13.5 % (11.6-14.6); RBC Distribution Width SD 46.9 fl (35.1-43.9); Red Blood Count 4.98 M/mm3 (4.2-5.4); White Blood Count 7.5 K/mm3 (4.4-11.0)
== END | disposition home or self-care (01) ==
LOC: MTLAB 12:31
PROVIDERS: PCP Nurse Practitioner Family; Referring Provider Specialist; Visit Provider Specialist
DX: Z96.642 Presence of left artificial hip joint (principal)
CPT/HCPCS: 36415; 85025; 85652; 86140

== ENCOUNTER → 2023-05-10 | Outpatient (CLI) | payer MEDICARE, SELFPAY ==
--- NOTE | 2023-05-10 13:18 | CT_ITS ---
CT LEFT LOWER EXTREMITY WITH 3-D IMAGING CLINICAL INDICATION: LEFT HIP SPRAIN. Recent left total hip replacement. TECHNIQUE: Axial CT images of the LEFT lower extremity was performed without IV contrast material. Coronal and sagittal reformats as well as 3D reformats were provided. RADIATION DOSAGE (If Supplied By Facility): CTDIvol = ( 20.86 ) mGy, DLP = ( 703.13 ) mGycm COMPARISON: FINDINGS: Bones: Osseous structures are normal without evidence of fracture or dislocation. No lytic or blastic osseous masses. The patient is status post left total hip replacement. There is good alignment. Soft Tissues: Mild degree of residual postoperative soft tissue changes overlying the left hip joint. CT/Extremity Lower without Contra IMPRESSION: Status post left total hip replacement. There is good alignment. Mild degree residual deep soft tissue postoperative changes. Electronically Signed: Niles Farley MD at 13:14 EST ,
== END | disposition home or self-care (01) ==
PROVIDERS: PCP Nurse Practitioner Family; Referring Provider Specialist; Visit Provider Specialist
DX: S73.192A Other sprain of left hip, initial encounter (principal); Z96.642 Presence of left artificial hip joint; X58.XXXA Exposure to other specified factors, initial encounter
CPT/HCPCS: 73700

== ENCOUNTER → 2023-06-23 | Outpatient (CLI) | payer MEDICARE, SELFPAY ==
[2023-06-23 12:40] LABS: Absolute Lymphocyte Count 3.17 X10^3/uL (0.83-4.51); Absolute Neutrophil Count 3.1 X10^3/uL (2.0-7.7); Basophil# 0.07 X10^3/uL; Basophil% 0.9 % (0-1); Eosinophil# 0.17 X10^3/uL; Eosinophils% 2.3 % (0-5); Hematocrit 46.3 % (37-47); Hemoglobin 14.6 g/dL (12.0-15.0); Lymphocyte # 3.17 X10^3/ul (0.83-4.51); Mean Corp Hgb Conc 31.5 g/dL (32-36); Mean Corpuscular Hgb 28.3 pg (27.0-32.0); Mean Corpuscular Volume 89.7 fL (81-99); Mean Platelet Vol. 10.1 fl (6.2-12.0); Monocyte# 0.79 X10^3/uL; Monocyte% 10.7 % (0-10); NRBC Flagged by Analyzer 0 % (0-5); Neutrophil % 42.2 % (47-70); Platelet Count 320 K/mm3 (150-450); RBC Distribution Width CV 15.1 % (11.6-14.6); RBC Distribution Width SD 49.9 fl (35.1-43.9); Red Blood Count 5.16 M/mm3 (4.2-5.4); White Blood Count 7.4 K/mm3 (4.4-11.0)
[2023-06-23 12:46] LABS: Erythrocyte Sedimentation Rate 4 mm/hr (0-30)
[2023-06-23 13:36] LABS: CRP < 2.90 mg/L (0.0-3.0); Thyroid Stim Hormone (TSH) 1.46 uIU/mL (0.358-3.74)
== END | disposition home or self-care (01) ==
LOC: LAB 12:16
PROVIDERS: PCP Nurse Practitioner Family; Referring Provider Nurse Practitioner Family; Visit Provider Nurse Practitioner Family
DX: S73.192A Other sprain of left hip, initial encounter (principal); Z96.642 Presence of left artificial hip joint; X58.XXXA Exposure to other specified factors, initial encounter; L65.9 Nonscarring hair loss, unspecified
CPT/HCPCS: 36415; 84443; 85025; 85652; 86140

== ENCOUNTER → 2023-06-27 | Outpatient (CLI) | payer MEDICARE, SELFPAY ==
[2023-06-27] MEDS: Lidocaine 2% (5ml sdv) 5 ML VIAL.MPF INFILT (14:12)
--- NOTE | 2023-06-27 14:21 | PRO.PCM_ITS ---
Procedure Report Date of Procedure: 06/27/23
--- NOTE | 2023-06-27 14:21 | PCM.OP.PRO ---
Procedure Report Date of Procedure: 06/27/23 Assessment & Plan Assessment/Plan (1) Other sprain of left hip, initial encounter: PLAN: PROCEDURE: Fluoroscopic Guided left hip aspiration ORDERING PROVIDER: Dr. Newman INDICATION: Female, 73 years old. Left hip pain status post left hip replacement. PROVIDER: GREG Ivan PROCEDURE: CONSENT: The risks, benefits, and alternatives to the procedure were explained to the patient. The specific risks of bleeding, infection, and neurovascular injury were detailed and accepted. Witnessed informed consent was obtained. TECHNIQUE: The left hip access site was prepped and draped in sterile fashion. 2% Lidocaine was administered subcutaneously for local anesthesia. A 22-gauge spinal needle was positioned under radiographic fluoroscopic localization. Approximately 2 cc of Isovue 300 instilled for localization purposes. Aspiration was then attempted. No fluid was able to be aspirated. The spinal needle was removed, and a dressing was applied. The patient tolerated the procedure well without any immediate complications. IMPRESSION: Successful fluoroscopic guided left hip needle placement for attempted left hip aspiration. No fluid able to be aspirated. Procedures Radiology Radiology Xray Procedures: Inj Asp major Joint - Hip, Knee
== END | disposition home or self-care (01) ==
LOC: US 13:32 → RAD 13:34
PROVIDERS: PCP Nurse Practitioner Family; Referring Provider Specialist; Visit Provider Specialist
DX: S73.192A Other sprain of left hip, initial encounter (principal); Z96.642 Presence of left artificial hip joint; X58.XXXA Exposure to other specified factors, initial encounter
CPT/HCPCS: 20610; 77002

== ENCOUNTER → 2024-10-11 | Outpatient (CLI) | payer MEDICARE, SELFPAY ==
[2024-10-11 12:24] LABS: Absolute Lymphocyte Count 3.41 X10^3/uL (0.83-4.51); Basophil# 0.05 X10^3/uL; Basophil% 0.6 % (0-1); Eosinophil# 0.22 X10^3/uL; Eosinophils% 2.6 % (0-5); Hematocrit 48.9 % (37-47); Lymphocyte # 3.41 X10^3/ul (0.83-4.51); Lymphocyte % 40.6 % (19-41); Mean Corp Hgb Conc 32.7 g/dL (32-36); Mean Corpuscular Hgb 30.4 pg (27.0-32.0); Mean Corpuscular Volume 92.8 fL (81-99); Mean Platelet Vol. 10.9 fl (6.2-12.0); Monocyte# 0.64 X10^3/uL; Monocyte% 7.6 % (0-10); NRBC Flagged by Analyzer 0 % (0-5); Neutrophil # 4.03 X10^3/uL (2.7-7.7); Platelet Count 280 K/mm3 (150-450); RBC Distribution Width CV 14.1 % (11.6-14.6); RBC Distribution Width SD 48.4 fl (35.1-43.9); Red Blood Count 5.27 M/mm3 (4.2-5.4); White Blood Count 8.4 K/mm3 (4.4-11.0)
[2024-10-11 12:38] LABS: Prothrombin Time (Protime)PT. 13.4 SECONDS (11.7-14.9)
[2024-10-11 12:56] LABS: ALB/GLOB Ratio 1.8 RATIO (0.9-2.4); AST(SGOT) 28 U/L (<=31); Alanine Aminotransfer ALT/SGPT 51 U/L (<=34); Albumin, Serum 4.5 g/dL (3.4-4.8); Alkaline Phosphatase 61 U/L (35-104); Anion Gap 13 (5-15); BUN 20 mg/dL (4-19); BUN/Creat Ratio 23.6 RATIO (10-20); Calcium,Total 9.7 mg/dL (7.6-11.0); Carbon Dioxide 23.3 mmol/L (21.0-32.0); Chloride 102 mmol/L (98-108); Creatinine, Serum 0.83 mg/dL (0.70-1.20); Digoxin Level 0.86 ng/mL (0.00-2.00); EST Glomerular Filtration Rate 75 (>60); Globulin 2.5 g/dL (2.2-4.2); Glucose 102 mg/dL (70-99); Potassium 4.5 mmol/L (3.3-5.1); Sodium Level 138 mmol/L (133-145); Total Bilirubin 0.58 mg/dL (0.00-1.30)
[2024-10-11 20:37] LABS: Iron 105 ug/dL (50-170)
[2024-10-11 20:43] LABS: Ferritin 46 ng/mL (22-378); Vitamin B12 229 pg/mL (180-914); Vitamin D,25 Hydroxy 40.4 ng/mL (30-100)
== END | disposition home or self-care (01) ==
LOC: LABSPEC 12:01
PROVIDERS: Internal Medicine; PCP Nurse Practitioner Family; Referring Provider Internal Medicine; Visit Provider Internal Medicine
DX: Z01.818 Encounter for other preprocedural examination (principal); G62.9 Polyneuropathy, unspecified; L65.9 Nonscarring hair loss, unspecified
CPT/HCPCS: 80053; 80162; 82306; 82607; 82728; 83540; 85025; 85610; 85730

== ENCOUNTER → 2024-12-03 | Outpatient (CLI) | payer MEDICARE, SELFPAY | END | disposition home or self-care (01) | PROVIDERS: PCP Internal Medicine; Referring Provider Internal Medicine; Visit Provider Internal Medicine | DX: R94.2 Abnormal results of pulmonary function studies (principal) | CPT/HCPCS: 94060; 94726; 94729 ==

== ENCOUNTER → 2024-12-13 | Outpatient (CLI) | payer MEDICARE, SELFPAY | END | disposition home or self-care (01) | LOC: SL 10:54 | PROVIDERS: PCP Internal Medicine; Referring Provider Internal Medicine; Visit Provider Internal Medicine | DX: R94.2 Abnormal results of pulmonary function studies (principal) | CPT/HCPCS: 94762 ==

== ENCOUNTER 2025-02-19 07:09 | Day surgery (SDC) | payer MEDICARE, SELFPAY ==
--- NOTE | 2025-02-13 16:24 | PAT.ANESEVAL ---
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 When Was Last Pacemaker Check QUESTION #4 FULL TEXT: You/Your Family Experience fever (hyperthermia) with Anesthesia Last Oral Intake Last Oral intake: Last Oral Intake NPO since Meds taken in AM with sips of water? Meds patient instructed to take am of surgery PONV PONV - enginehouse brakeman: PONV - enginehouse brakeman Female Yes 02/13/25 13:00 HX of Motion Sickness No 02/13/25 13:00 HX of N/V After Surgery No 02/13/25 13:00 Non-Smoker Yes 02/13/25 13:00 Duration of Surgery greater No 02/13/25 13:00 than 60 minutes Number of Risk Factors 2 02/13/25 13:00 PONV Score Moderate Risk 02/13/25 13:00 Height & Weight Height & Weight: Anesthesia: Height & Weight Height 5 ft 11 in 01/18/23 13:23 Respiratory Assessment Respiratory Assessment - enginehouse brakeman: Respiratory Tract Infection Hx - enginehouse brakeman Hx Respiratory Tract Infection No 02/13/25 13:00 STOP Sleep Apnea STOP Sleep Apnea - enginehouse brakeman: STOP Sleep Apnea - enginehouse brakeman Hx Hypertension No 02/13/25 13:00 Hx Sleep Apnea No 02/13/25 13:00 CPAP BIPAP Do you snore loudly (louder No 02/13/25 13:00 than talking or can be heard Do you often feel tired/ No 02/13/25 13:00 fatigued/ sleepy during daytime? Has anyone observed you stop No 02/13/25 13:00 breathing during sleep? STOP Results Negative 02/13/25 13:00 QUESTION #5 FULL TEXT : Do you snore loudly (louder than talking or can be heard through closed doors)? 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 Specify any problems Hx of Preganancy in last 3 No 02/13/25 13:00 Months Nurse Filling Out Transfusion DSCHRIBER 02/13/25 13:00 & Questions: Date: 02/13/25 02/13/25 13:00 Time: 13:01 02/13/25 13:00 Patient unable to answer at this time (ie. confused, unrespo /Reproduction History /Reproductive History - enginehouse brakeman: /Reproductive Hx- enginehouse brakeman Hx Now No 02/13/25 13:00 Gestational Age (in weeks): EDC: Hx Hx Para Hx Section SAB No 02/13/25 13:00 [facility] Medical History (Updated 02/13/25 @ 13:08 by Missy Amaral) Post-menopausal Diabetes Back pain Dietary restriction Difficulty swallowing History of pain when walking History of edema Arthritis GERD (gastroesophageal reflux disease) Non-smoker History of stress test History of irregular heartbeat Home Medications ?Medication ?Instructions ?Recorded ?Last Taken ?Type digoxin 250 mcg (0.25 mg) tablet 250 mcg PO 1500 01/10/23 Unknown History diltiazem HCl 120 mg capsule,24 120 mg PO 1500 01/10/23 Unknown History hr,extended release omeprazole 20 mg capsule,delayed 20 mg PO 1500 01/10/23 Unknown History release venlafaxine 75 mg capsule,extended 75 mg PO 1500 01/10/23 Unknown History release 24 hr ascorbic acid (vitamin C) 500 mg 500 mg PO DAILY 12/18/24 Unknown History capsule sodium sul 1.479 gram-potas ch See Rx Instructions PO PER PKG DIR 12/18/24 Unknown Rx 0.188 gram-magnes sul 0.225 gram #24 tabs tablet (Sutab) aspirin 81 mg capsule 81 mg PO QODAY 02/13/25 Unknown History cholecalciferol (vitamin D3) 125 125 mcg PO DAILY 02/13/25 Unknown History mcg (5,000 unit) tablet (Vitamin D3) magnesium 250 mg tablet 250 mg PO DAILY 02/13/25 Unknown History naproxen 500 mg tablet 500 mg PO BID PRN PRN pain 02/13/25 Unknown History Allergy/AdvReac Type Severity Reaction Status Date / Time nickel Allergy Mild Other Verified 02/13/25 12:57 Surgical History (Updated 02/13/25 @ 13:08 by Missy Amaral) Hx of colonoscopy Hx of total hip arthroplasty Hx of total knee arthroplasty History of lateral meniscus repair of right knee History of laparoscopy History of D&C History of oophorectomy History of tonsillectomy History of History of knee replacement History of back surgery Social History Smoking Status: Never smoker Audit: Pertinent Findings Pertinent Findings EKG Perinent findings: 12/19/2022. Sinus bradycardia at 55 bpm. Left axis deviation. No change from 11/28/2022. Stress test pertinent findings: May 28, 2021. No clear evidence of ischemia or infarction. EF of 62%. Recommendation Anesthesia Recommendation Anesthesia recommendation: OPTIMIZED for anesthesia
[2025-02-19] VITALS (10 sets, daily range): BP systolic 85–159; BP diastolic 55–83; PULSE 56–61; RESP 12–16; TEMP 36.3–36.6; O2SAT 93–100; BMI 27.0
--- NOTE | 2025-02-19 07:43 | PCM.HP.STD ---
[facility] - General General Date of Admission: 02/19/25 Date of Service: 02/19/25 Chief Complaint: Dysphagia and screening colonoscopy HPI Narrative MARGO CASTORENA, is a 74 F who presents [Chief Complaint: difficulty swallowing Patient referred from primary care physician for issues with swallowing for 5 years. Patient endorses with swallowing liquids and solids. She will start to cough when swallowing. She does not feel like food gets stuck in her esophagus. She does feel like it is more of an issue with initiation of swallowing. She has never had speech pathology evaluation. She has never had cookie swallow or barium esophagram. She has intermittent heartburn. Patient also suffering from constipation which is her baseline. She has a bowel movement about once a week. She is on blood let Linzess prescribed by her PCP although it is not seeming to work. Unclear which dose she is taking. She has a family history of colon cancer in her father who was diagnosed at age 70. [facility] Medical History (Updated 02/19/25 @ 07:[address] Winston Friend, DO) Post-menopausal Diabetes Back pain Dietary restriction Difficulty swallowing History of pain when walking History of edema Arthritis GERD (gastroesophageal reflux disease) Non-smoker History of stress test History of irregular heartbeat Home Medications ?Medication ?Instructions ?Recorded ?Last Taken ?Type digoxin 250 mcg (0.25 mg) tablet 250 mcg PO 1500 01/10/23 Unknown History diltiazem HCl 120 mg capsule,24 120 mg PO 1500 01/10/23 Unknown History hr,extended release omeprazole 20 mg capsule,delayed 20 mg PO 1500 01/10/23 Unknown History release venlafaxine 75 mg capsule,extended 75 mg PO 1500 01/10/23 Unknown History release 24 hr ascorbic acid (vitamin C) 500 mg 500 mg PO DAILY 12/18/24 Unknown History capsule sodium sul 1.479 gram-potas ch See Rx Instructions PO PER PKG DIR 12/18/24 Unknown Rx 0.188 gram-magnes sul 0.225 gram #24 tabs tablet (Sutab) aspirin 81 mg capsule 81 mg PO QODAY 02/13/25 Unknown History cholecalciferol (vitamin D3) 125 125 mcg PO DAILY 02/13/25 Unknown History mcg (5,000 unit) tablet (Vitamin D3) magnesium 250 mg tablet 250 mg PO DAILY 02/13/25 Unknown History naproxen 500 mg tablet 500 mg PO BID PRN PRN pain 02/13/25 Unknown History Allergy/AdvReac Type Severity Reaction Status Date / Time nickel Allergy Mild Other Verified 02/19/25 07:44 Surgical History Hx of colonoscopy Hx of total hip arthroplasty Hx of total knee arthroplasty History of lateral meniscus repair of right knee History of laparoscopy History of D&C History of oophorectomy History of tonsillectomy History of History of knee replacement History of back surgery Social History Smoking Status: Never smoker ROS Constitutional Constitutional: Denies fatigue, fever(s), poor appetite, weight gain or weight loss Gastrointestinal Gastrointestinal: Denies belching, bloating, change in bowel habits, change in stool character, chewing difficulty, coffee ground emesis, constipation, cramping, diarrhea, dyspepsia, dysphagia, early satiety, excessive flatus, fecal incontinence, heartburn, hematemesis, hematochezia, hemorrhoids, loose stools, melena, nausea, odynophagia, rectal bleeding, tenesmus, vomiting or weight changes Physical Exam Const alert, oriented x3, no apparent distress and healthy appearing General Appearance: cooperative GI normal to inspection, nondistended, normoactive bowel sounds, soft to palpation, non-tender and non-distended Percussion: normal to percussion Rectal Exam: deferred Assessment & Plan Assessment/Plan (1) Constipation: (2) Normal screening colonoscopy: (3) Difficulty swallowing: PLAN: Assessment and Plan Assessment and Plan (1) Dysphagia: (2) Constipation: Status: Acute Plan: Margo is a 74-year-old female patient here today for evaluation of difficulty swallowing x 5 years. Patient endorses coughing while swallowing liquids and solids. She does not feel like it is esophageal in origin. She does endorse some heartburn. she is on omeprazole 20 mg daily which does help with some of the heartburn. She will undergo EGD for assessment of her upper GI tract. We may consider cookie swallow or referral to speech pathology pending results. Patient also with a family history of colon cancer and chronic constipation. Her last colonoscopy was about 5 years ago with polyps. She has chronic constipation with a bowel movement once per week. She is on Linzess however she is unsure of the dose and it is too expensive. I offered her samples of Linzess 290 mcg daily and provided a coupon. Will prescribe if this dose is helpful. She will undergo colonoscopy in conjunction with her EGD. Sutab sent to the pharmacy. - EGD and colonoscopy -Continue omeprazole - Trial Linzess 290 mcg daily - Consider cookie swallow or referral to speech pathology -follow-up after procedures Medications: New sod sulf-pot chloride-mag sulf 1.479-0.188- 0.225 gram (Sutab) PO PER PKG DIR 24 tabs 0RF ]
--- NOTE | 2025-02-19 08:01 | PCM.PRE.AN2 ---
ASA Classification* ASA Classification ASA Classification: 3 (< 4METs on 2 antiarrhythmic drugs ) Assessment & Plan Anesthesia* Anesthesia Assessment Anesthesia Assessment: Discussed sedation and/or anesthesia options, risks, benefits, and alternatives with patient/parents/legal guardian/POA. Questions invited. The patient/parents/legal guardian/POA seems to understand and agrees to proceed with anesthesia plan. Reviewed the physical assessment, medical history, allergy history and patient home medications list prior to surgery/procedure/anesthetic and documented any changes. Performed airway and anesthesia risk assessments. Anesthesia Type Anesthesia Type: MAC Anesthesia Focused Assessment* Temperature: 97.4 F Pulse Rate: 61 Blood Pressure: 159/83 Respiratory Rate: 14 Pulse Ox: 99 Airway Assessment Mouth opens: >3 cm Mallampati Score: II Labs Anesthesia Preop lab: CBC WBC, (4.4-11.0) 8.4 K/mm3 10/11/24, Unknown RBC, (4.2-5.4) 5.27 M/mm3 10/11/24, Unknown Hgb, (12.0-15.0) 16.0 g/dL H 10/11/24, Unknown Hct, (37-47) 48.9 % H 10/11/24, Unknown Plt Count, (150-450) 280 K/mm3 10/11/24, Unknown CHEMISTRY Potassium, (3.3-5.1) 4.5 mmol/L 10/11/24, Unknown Sodium, (133-145) 138 mmol/L 10/11/24, Unknown Magnesium, (1.6-2.6) 2.3 mg/dL 01/18/23, 06:15 BUN, (4-19) 20 mg/dL H 10/11/24, Unknown Creatinine, (0.70-1.20) 0.83 mg/dL 10/11/24, Unknown Glucose, (70-99) 102 mg/dL H 10/11/24, Unknown POC Glucose, (74-106) 116 mg/dL H 01/18/23, 06:06 TSH, (0.358-3.74) 1.46 uIU/mL 06/23/23, 12:20 COAG PT, (11.7-14.9) 13.4 SECONDS 10/11/24, Unknown Pre-Assessment Diagnosis/Proposed Procedure Planned Operative Procedure(s): CSCOPE EGD Anesthesia History Anesthesia History - water pumper: Anesthesia History - water pumper Hx Hospitalization No 02/13/25 13:00 Any Problems With Anesthesia No 02/13/25 13:00 Cholinesterase deficiency No 02/13/25 13:00 You/Your Family Experience No 02/13/25 13:00 fever (hyperthermia) with Relationship Recent Exposure to Contagious No 02/19/25 07:48 Disease Does patient have nerve No 02/13/25 13:00 stimulator Patient instructed to have device shut off --Does patient have Pacemaker No 02/19/25 07:48 or ICD? When Was Last Pacemaker Check QUESTION #4 FULL TEXT: You/Your Family Experience fever (hyperthermia) with Anesthesia Last Oral Intake Last Oral intake: Last Oral Intake NPO since 03:30 02/19/25 07:48 Meds taken in AM with sips of water? Meds patient instructed to take am of surgery PONV PONV - water pumper: PONV - water pumper Female Yes 02/13/25 13:00 HX of Motion Sickness No 02/13/25 13:00 HX of N/V After Surgery No 02/13/25 13:00 Non-Smoker Yes 02/13/25 13:00 Duration of Surgery greater No 02/13/25 13:00 than 60 minutes Number of Risk Factors 2 02/13/25 13:00 PONV Score Moderate Risk 02/13/25 13:00 Height & Weight Height & Weight: Anesthesia: Height & Weight Height 5 ft 11 in 02/19/25 07:48 Weight: 88 kg 02/19/25 07:48 Body Mass Index (BMI) 27.0 02/19/25 07:48 Respiratory Assessment Respiratory Assessment - water pumper: Respiratory Tract Infection Hx - water pumper Hx Respiratory Tract Infection No 02/13/25 13:00 STOP Sleep Apnea STOP Sleep Apnea - water pumper: STOP Sleep Apnea - water pumper Hx Hypertension No 02/13/25 13:00 Hx Sleep Apnea No 02/13/25 13:00 CPAP BIPAP Do you snore loudly (louder No 02/13/25 13:00 than talking or can be heard Do you often feel tired/ No 02/13/25 13:00 fatigued/ sleepy during daytime? Has anyone observed you stop No 02/13/25 13:00 breathing during sleep? STOP Results Negative 02/13/25 13:00 QUESTION #5 FULL TEXT : Do you snore loudly (louder than talking or can be heard through closed doors)? 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 Specify any problems Hx of Preganancy in last 3 No 02/13/25 13:00 Months Nurse Filling Out Transfusion DSCHRIBER 02/13/25 13:00 & Questions: Date: 02/13/25 02/13/25 13:00 Time: 13:01 02/13/25 13:00 Patient unable to answer at this time (ie. confused, unrespo /Reproduction History /Reproductive History - water pumper: /Reproductive Hx- water pumper Hx Now No 02/13/25 13:00 Gestational Age (in weeks): EDC: Hx Hx Para Hx Section SAB No 02/13/25 13:00 Active Medications Active Medications: Current Medications Generic Name Dose Route Start Last Admin Trade Name Freq PRN Reason Stop Dose Admin Lactated Ringer's 1,000 mls @ 15 mls/hr 02/19/25 07:30 IV .Q48H SANTOSH PFSH Medical History Post-menopausal Diabetes Back pain Dietary restriction Difficulty swallowing History of pain when walking History of edema Arthritis GERD (gastroesophageal reflux disease) Non-smoker History of stress test History of irregular heartbeat Home Medications ?Medication ?Instructions ?Recorded ?Last Taken ?Type digoxin 250 mcg (0.25 mg) tablet 250 mcg PO 1500 01/10/23 Unknown History diltiazem HCl 120 mg capsule,24 120 mg PO 1500 01/10/23 02/18/25 History hr,extended release omeprazole 20 mg capsule,delayed 20 mg PO 1500 01/10/23 02/18/25 History release venlafaxine 75 mg capsule,extended 75 mg PO 1500 01/10/23 02/18/25 History release 24 hr ascorbic acid (vitamin C) 500 mg 500 mg PO DAILY 12/18/24 02/17/25 History capsule sodium sul 1.479 gram-potas ch See Rx Instructions PO PER PKG DIR 12/18/24 Unknown Rx 0.188 gram-magnes sul 0.225 gram #24 tabs tablet (Sutab) aspirin 81 mg capsule 81 mg PO QODAY 02/13/25 02/14/25 History cholecalciferol (vitamin D3) 125 125 mcg PO DAILY 02/13/25 02/16/25 History mcg (5,000 unit) tablet (Vitamin D3) magnesium 250 mg tablet 250 mg PO DAILY 02/13/25 Unknown History naproxen 500 mg tablet 500 mg PO BID PRN PRN pain 02/13/25 Unknown History Allergy/AdvReac Type Severity Reaction Status Date / Time nickel Allergy Mild Other Verified 02/19/25 07:44 Surgical History Hx of colonoscopy Hx of total hip arthroplasty Hx of total knee arthroplasty History of lateral meniscus repair of right knee History of laparoscopy History of D&C History of oophorectomy History of tonsillectomy History of History of knee replacement History of back surgery Social History Smoking Status: Never smoker Review of Systems (Anesthesia) ROS Narrative System reviewed and no additional complaints, except as documented.
--- NOTE | 2025-02-19 08:08 | EKG12_ITS ---
Test Reason : PRE-OP Blood Pressure : */* mmHG Vent. Rate : 56 BPM Atrial Rate : 56 BPM P-R Int : 146 ms QRS Dur : 92 ms QT Int : 416 ms P-R-T Axes : 21 -32 32 degrees QTcB Int : 401 ms Sinus bradycardia Left axis deviation Nonspecific ST abnormality Abnormal ECG No previous ECGs available Confirmed by NELIDA GIRON, CATHY ([id number]), commissioning editor KHUSHBOO KAM ([id number]) on 02/20/2025 7:17:07 AM Referred By: Kacey Miller Confirmed By: CATHY KRAUSE MD
--- NOTE | 2025-02-19 08:15 | COLBX_PTH ---
PATIENT: HAYDEN CASTORENA LOC: EN U#:[id number] AGE/SX: 74/F ROOM: RE02/19/[address]: Dr. Catrachito Claros DO : 1950 BED: DIS: 02/19/2025 SPEC #: [id number] RECD: 02/19/25 10:56 STATUS: TA REBecky #: [id number] JESSY: 02/19/25 08:[address]: Catrachito Claros DEPT: SURGICAL PATHOLOGY RECD BY: Jaciel Stoddard ENTERED: 02/19/25 15:05 SP TYPE: COLON BX OTHR DR: Dr. Kacey Miller DO Tissues: A - Esophagus, NOS Procedures: Surgery Specimen Level IV HEADER OPERATION: Colonoscopy, EGD with biopsy and dilatation PRE-OP DIAGNOSIS: Constipation, normal screening colonoscopy, difficulty swallowing TISSUE SUBMITTED: A- Random esophagus biopsy MICROSCOPIC DIAGNOSIS A. Esophagus, random, biopsy: * Benign squamous mucosa. * Negative for eosinophils. MICROSCOPIC DESCRIPTION Slides are reviewed. GROSS DESCRIPTION A. Received in fixative is one container labeled with the patient's name and designated Random esophagus biopsy. The specimen consists of two irregular fragments of kapoor tissue that measure 0.2 and 0.3 cm. The specimen is totally submitted in one cassette. OR 02/19/2025 CPT:62067
--- NOTE | 2025-02-19 09:22 | OP.PROVAT_ITS ---
02/19/2025 Kacey Miller Re : Upper GI endoscopy procedure for Margo Zamarripa Dear Paul This procedure was performed on Wednesday, February 19, 2025. My impressions and recommendations are as follows: Impressions : - Abnormal esophageal motility. Dilated. Biopsied. - Multiple gastric polyps. - No gross lesions in the entire examined duodenum. Recommendations : - Discharge patient to home. - Resume previous diet. - Continue present medications. - Await pathology results. -Check to gastrin level to see if the multiple polyps in the stomach are secondary to hypergastrinemia from PPI usage versus bile reflux gastritis versus atrophic gastritis My findings are described in the full procedure note, which is enclosed. If I can be of further assistance, please feel free to contact me at . Sincerely, Catrachito Friend, 02/19/2025 9:22:04 AM This report has been signed electronically.
--- NOTE | 2025-02-19 09:22 | OP.EGD_ITS ---
Patient Name: Margo Zamarripa Procedure Date: 02/19/2025 8:48 AM Date of : 1950 Age: 74 Procedure: Upper GI endoscopy Indications: Dysphagia Providers: Catrachito Claros DO Referring MD: Kacey Miller Medicines: Monitored Anesthesia Care Patient Profile: This is a 74 year old female. Refer to note in patient chart for documentation of history and physical. Patient has symptoms of dysphagia with both liquids and solids. Complications: No immediate complications. Procedure: Pre-Anesthesia Assessment: - Prior to the procedure, a History and Physical was performed, and patient medications and allergies were reviewed. The patient is competent. The risks and benefits of the procedure and the sedation options and risks were discussed with the patient. All questions were answered and informed consent was obtained. Patient identification and proposed procedure were verified by the physician in the pre-procedure area. Mental Status Examination: alert and oriented. Airway Examination: normal oropharyngeal airway and neck mobility. Respiratory Examination: clear to auscultation. CV Examination: normal. Prophylactic Antibiotics: The patient does not require prophylactic antibiotics. Prior Anticoagulants: The patient has taken no anticoagulant or antiplatelet agents except for NSAID medication. ASA Grade Assessment: II - A patient with mild systemic disease. After reviewing the risks and benefits, the patient was deemed in satisfactory condition to undergo the procedure. The anesthesia plan was to use monitored anesthesia care (MAC). Immediately prior to administration of medications, the patient was re-assessed for adequacy to receive sedatives. The heart rate, respiratory rate, oxygen saturations, blood pressure, adequacy of pulmonary ventilation, and response to care were monitored throughout the procedure. The physical status of the patient was re-assessed after the procedure. After obtaining informed consent, the endoscope was passed under direct vision. Throughout the procedure, the patient's blood pressure, pulse, and oxygen saturations were monitored continuously. The pediatric colonoscope was introduced through the mouth, and advanced to the second part of duodenum. The upper GI endoscopy was accomplished without difficulty. The patient tolerated the procedure well. Scope In: 9:01:19 AM Scope Out: 9:05:41 AM Total Procedure Duration Time 0 hours 4 minutes 22 seconds Findings: Abnormal motility was noted in the esophagus. The cricopharyngeus was abnormal. There are extra peristaltic waves in the esophageal body. The distal esophagus/lower esophageal sphincter is spastic, but gives up passage to the endoscope. Primary peristaltic waves are noted. A guidewire was placed and the scope was withdrawn. Dilation was performed with a Savary dilator with no resistance at 60 Fr. The dilation site was examined and showed moderate mucosal disruption. Biopsies were taken with a cold forceps for histology. Verification of patient identification for the specimen was done. Estimated blood loss was minimal. Multiple large hyperplastic polyps with no bleeding and no stigmata of recent bleeding were found in the entire examined stomach. No gross lesions were noted in the entire examined duodenum. Bilious fluid was found in the gastric body. Impression: - Abnormal esophageal motility. Dilated. Biopsied. - Multiple gastric polyps. - No gross lesions in the entire examined duodenum. Recommendation: - Discharge patient to home. - Resume previous diet. - Continue present medications. - Await pathology results. -Check to gastrin level to see if the multiple polyps in the stomach are secondary to hypergastrinemia from PPI usage versus bile reflux gastritis versus atrophic gastritis Procedure Code(s): --- Professional --- 51565, Esophagogastroduodenoscopy, flexible, transoral; with insertion of guide wire followed by passage of dilator(s) through esophagus over guide wire 37372, 59,51, Esophagogastroduodenoscopy, flexible, transoral; with biopsy, single or multiple CPT copyright 2021 [employer]. All rights reserved. The codes documented in this report are preliminary and upon emergency department director review may be revised to meet current compliance requirements. Catrachito Claros DO 02/19/2025 9:22:04 AM This report has been signed electronically. Number of Addenda: 0 Note Initiated On: 02/19/2025 8:48 AM
--- NOTE | 2025-02-19 09:25 | OP.PROVAT_ITS ---
02/19/2025 Kacey Miller Re : Colonoscopy procedure for Margo Zamarripa Dear Paul This procedure was performed on Wednesday, February 19, 2025. My impressions and recommendations are as follows: Impressions : - Preparation of the colon was poor. - Redundant colon. - Stool in the sigmoid colon. - No specimens collected. Recommendations : - Discharge patient to home. - Resume previous diet. - Continue present medications. - Repeat colonoscopy because the bowel preparation was poor. My findings are described in the full procedure note, which is enclosed. If I can be of further assistance, please feel free to contact me at . Sincerely, Catrachito Claros, 02/19/2025 9:24:46 AM This report has been signed electronically.
--- NOTE | 2025-02-19 09:25 | OP.COLON_ITS ---
Patient Name: Margo Zamarripa Procedure Date: 02/19/2025 9:05 AM Date of : 1950 Age: 74 Procedure: Colonoscopy Indications: Screening for colorectal malignant neoplasm Providers: Catrachito Claros DO Referring MD: Kacey Miller Medicines: Monitored Anesthesia Care Patient Profile: This is a 74 year old female. Refer to note in patient chart for documentation of history and physical. Patient has symptoms of dysphagia with both liquids and solids. Last Colonoscopy: several years ago. Complications: No immediate complications. Procedure: Pre-Anesthesia Assessment: - Prior to the procedure, a History and Physical was performed, and patient medications and allergies were reviewed. The patient is competent. The risks and benefits of the procedure and the sedation options and risks were discussed with the patient. All questions were answered and informed consent was obtained. Patient identification and proposed procedure were verified by the physician in the pre-procedure area. Mental Status Examination: alert and oriented. Airway Examination: normal oropharyngeal airway and neck mobility. Respiratory Examination: clear to auscultation. CV Examination: normal. Prophylactic Antibiotics: The patient does not require prophylactic antibiotics. Prior Anticoagulants: The patient has taken no anticoagulant or antiplatelet agents except for NSAID medication. ASA Grade Assessment: II - A patient with mild systemic disease. After reviewing the risks and benefits, the patient was deemed in satisfactory condition to undergo the procedure. The anesthesia plan was to use monitored anesthesia care (MAC). Immediately prior to administration of medications, the patient was re-assessed for adequacy to receive sedatives. The heart rate, respiratory rate, oxygen saturations, blood pressure, adequacy of pulmonary ventilation, and response to care were monitored throughout the procedure. The physical status of the patient was re-assessed after the procedure. After I obtained informed consent, the scope was passed under direct vision. Throughout the procedure, the patient's blood pressure, pulse, and oxygen saturations were monitored continuously. The colonoscope was introduced through the anus with the intention of advancing to the cecum. The scope was advanced to the splenic flexure before the procedure was aborted. Medications were given. The colonoscopy was performed without difficulty. The patient tolerated the procedure well. The quality of the bowel preparation was poor. Scope In: 9:08:20 AM Scope Out: 9:12:10 AM Total Procedure Duration Time 0 hours 3 minutes 50 seconds Findings: The perianal and digital rectal examinations were normal. The sigmoid colon was significantly redundant. Stool was found in the sigmoid colon, precluding visualization. Lavage of the area was performed using copious amounts of sterile water, resulting in incomplete clearance with continued poor visualization. Impression: - Preparation of the colon was poor. - Redundant colon. - Stool in the sigmoid colon. - No specimens collected. Recommendation: - Discharge patient to home. - Resume previous diet. - Continue present medications. - Repeat colonoscopy because the bowel preparation was poor. Procedure Code(s): --- Professional --- 00073, 53, Colonoscopy, flexible; diagnostic, including collection of specimen(s) by brushing or washing, when performed (separate procedure) CPT copyright 2021 [employer]. All rights reserved. The codes documented in this report are preliminary and upon employment clerk review may be revised to meet current compliance requirements. Catrachito Claros DO 02/19/2025 9:24:46 AM This report has been signed electronically. Number of Addenda: 0 Note Initiated On: 02/19/2025 9:05 AM
--- NOTE | 2025-02-19 09:27 | PCM.POST.ANE ---
Anesthesia: Postop Eval I Current Vital Signs Temperature: 97.8 F Pulse Rate: 57 Blood Pressure: 85/56 Respiratory Rate: 16 Pulse Ox: 94 Oxygen Delivery Method: Room Air Assessment Airway patent: Yes Spontaneous unlabored respirations: Yes Mental status: Asleep nausea: No Vomiting: No Anesthesia Complication: No Fluid Hydration Crystalloid volume administer (ml): 500 Total IV fluid infused: 500 Progress Note Anesthesia document: Postop Eval 1 completed: Yes
--- NOTE | 2025-02-19 09:53 | PCM.POSTANE2 ---
Anesthesia Postop Eval I Sum Postop Eval Completion status Anesthesia document: Postop Eval 1 completed: Yes Anesthesia Postop Eval I Summary Anesthesia Postop Eval I Summary: Anesthesia Postop Eval I: Assessment Summary Airway patent Yes 02/19/25 09:28 [email or web address] Spontaneous unlabored Yes 02/19/25 09:28 [email or web address] respirations Mental status Asleep 02/19/25 09:28 [email or web address] nausea No 02/19/25 09:28 [email or web address] Vomiting No 02/19/25 09:28 [email or web address] Anesthesia Postop Eval I: Fluid Summary Crystalloid volume administer 500 02/19/25 09:28 [email or web address] (ml) Colloids volume administered ( ml) Blood Product volume administered (ml) Total IV fluid infused 500 02/19/25 09:28 [email or web address] Anesthesia Postop Eval I: Summary Notes Anesthesia Complication No 02/19/25 09:28 [email or web address] Anesthesia Complication Comment: Post-operative progress note Anesthesia: Postop Eval II Evaluation Mental status: Awake and Calm Pain Level: 0 nausea: No Vomiting: No Complications Anesthesia Complication: No
== END 2025-02-19 10:03 | disposition home or self-care (01) ==
LOC: EN 07:12 → AC 07:13
PROVIDERS: PCP Internal Medicine; Referring Provider Internal Medicine; Visit Provider Internal Medicine Gastroenterology
PROC: 0DJD8ZZ Inspection of Lower Intestinal Tract, Via Natural or Artificial Opening Endoscopic (ICD-10-PCS; CPT 45378; principal; 2025-02-19 08:10)
DX: Z12.11 Encounter for screening for malignant neoplasm of colon (principal); E11.9 Type 2 diabetes mellitus without complications; R13.10 Dysphagia, unspecified; K31.7 Polyp of stomach and duodenum; K21.9 Gastro-esophageal reflux disease without esophagitis; K59.00 Constipation, unspecified; Z80.0 Family history of malignant neoplasm of digestive organs; Z79.899 Other long term (current) drug therapy; Z96.649 Presence of unspecified artificial hip joint; Z96.659 Presence of unspecified artificial knee joint; K30 Functional dyspepsia
CPT/HCPCS: 43248; 43239; 45378; 88305; 93005; C1769; J2405

== ENCOUNTER 2025-04-02 13:15 | Day surgery (SDC) | payer MEDICARE, SELFPAY ==
--- NOTE | 2025-03-31 12:54 | PAT.ANESEVAL ---
Pre-Assessment Diagnosis/Proposed Procedure Planned Operative Procedure(s): COLONOSCOPY Anesthesia History Anesthesia History - java developer consultant: Anesthesia History - java developer consultant Hx Hospitalization No 03/31/25 11:38 Any Problems With Anesthesia No 03/31/25 11:38 Cholinesterase deficiency No 03/31/25 11:38 You/Your Family Experience No 03/31/25 11:38 fever (hyperthermia) with Relationship Recent Exposure to Contagious No 02/19/25 07:48 Disease Does patient have nerve No 03/31/25 11:38 stimulator Patient instructed to have device shut off --Does patient have Pacemaker or ICD? When Was Last Pacemaker Check QUESTION #4 FULL TEXT: You/Your Family Experience fever (hyperthermia) with Anesthesia Last Oral Intake Last Oral intake: Last Oral Intake NPO since Meds taken in AM with sips of water? Meds patient instructed to take am of surgery PONV PONV - java developer consultant: PONV - java developer consultant Female Yes 03/31/25 11:38 HX of Motion Sickness No 03/31/25 11:38 HX of N/V After Surgery No 03/31/25 11:38 Non-Smoker Yes 03/31/25 11:38 Duration of Surgery greater No 03/31/25 11:38 than 60 minutes Number of Risk Factors 2 03/31/25 11:38 PONV Score Moderate Risk 03/31/25 11:38 Height & Weight Height & Weight: Anesthesia: Height & Weight Height 5 ft 11 in 02/19/25 07:48 Respiratory Assessment Respiratory Assessment - java developer consultant: Respiratory Tract Infection Hx - java developer consultant Hx Respiratory Tract Infection No 03/31/25 11:38 STOP Sleep Apnea STOP Sleep Apnea - java developer consultant: STOP Sleep Apnea - java developer consultant Hx Hypertension No 03/31/25 11:38 Hx Sleep Apnea No 03/31/25 11:38 CPAP BIPAP Do you snore loudly (louder No 03/31/25 11:38 than talking or can be heard Do you often feel tired/ No 03/31/25 11:38 fatigued/ sleepy during daytime? Has anyone observed you stop No 03/31/25 11:38 breathing during sleep? STOP Results Negative 03/31/25 11:38 QUESTION #5 FULL TEXT : Do you snore loudly (louder than talking or can be heard through closed doors)? 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 Specify any problems Hx of Preganancy in last 3 No 03/31/25 11:38 Months Nurse Filling Out Transfusion VCHRISTIN 03/31/25 11:38 & Questions: Date: 03/31/25 03/31/25 11:38 Time: 11:39 03/31/25 11:38 Patient unable to answer at this time (ie. confused, unrespo /Reproduction History /Reproductive History - java developer consultant: /Reproductive Hx- java developer consultant Hx Now No 03/31/25 11:38 Gestational Age (in weeks): EDC: Hx Hx Para Hx Section SAB No 03/31/25 11:38 Does the father of the baby or his family experience fever w Father of the baby Malignant Hypertension history comment [facility] Medical History Post-menopausal Diabetes Back pain Dietary restriction Difficulty swallowing History of pain when walking History of edema Arthritis GERD (gastroesophageal reflux disease) Non-smoker History of stress test History of irregular heartbeat Home Medications Medication Instructions Recorded Last Taken Type digoxin 250 mcg (0.25 mg) tablet 250 mcg PO 1500 01/10/23 Unknown History diltiazem HCl 120 mg capsule,24 120 mg PO 1500 01/10/23 02/18/25 History hr,extended release omeprazole 20 mg capsule,delayed 20 mg PO 1500 01/10/23 02/18/25 History release venlafaxine 75 mg capsule,extended 75 mg PO 1500 01/10/23 02/18/25 History release 24 hr ascorbic acid (vitamin C) 500 mg 500 mg PO DAILY 12/18/24 02/17/25 History capsule sodium sul 1.479 gram-potas ch See Rx Instructions PO PER PKG DIR 12/18/24 Unknown Rx 0.188 gram-magnes sul 0.225 gram #24 tabs tablet (Sutab) aspirin 81 mg capsule 81 mg PO QODAY 02/13/25 02/14/25 History cholecalciferol (vitamin D3) 125 125 mcg PO DAILY 02/13/25 02/16/25 History mcg (5,000 unit) tablet (Vitamin D3) magnesium 250 mg tablet 250 mg PO DAILY 02/13/25 Unknown History naproxen 500 mg tablet 500 mg PO BID PRN PRN pain 02/13/25 Unknown History Allergy/AdvReac Type Severity Reaction Status Date / Time nickel Allergy Mild Other Verified 03/31/25 11:35 Surgical History (Updated 03/31/25 @ 11:38 by Sheryl Hurst) Hx of colonoscopy Hx of total hip arthroplasty Hx of total knee arthroplasty History of lateral meniscus repair of right knee History of laparoscopy History of D&C History of oophorectomy History of tonsillectomy History of History of knee replacement History of back surgery Social History Smoking Status: Never smoker Audit: Pertinent Findings Pertinent Findings EKG Perinent findings: Sinus bradycardia Left axis deviation Nonspecific ST abnormality Abnormal ECG No previous ECGs available Confirmed by CATHY KRAUSE MD ([id number]), telegraph editor KHUSHBOO KAM ([id number]) on 02/20/2025 7:17:07 AM Stress test pertinent findings: May 28, 2021. No clear evidence of ischemia or infarction. EF of 62%. Recommendation Anesthesia Recommendation Anesthesia recommendation: OPTIMIZED for anesthesia
[2025-04-02] VITALS (8 sets, daily range): BP systolic 110–130; BP diastolic 66–78; PULSE 56–63; RESP 16; TEMP 36.6–37.1; O2SAT 97–100; BMI 26.7
--- NOTE | 2025-04-02 13:33 | PCM.HP.STD ---
HPI - General General Date of Admission: 04/02/25 Date of Service: 04/02/25 Chief Complaint: Poor prep for colonoscopy HPI Narrative HAYDEN CASTORENA, is a 74 F who presents [for a repeat colonoscopy. She underwent colonoscopy approximately 6 weeks ago and it was stopped due to the severely poor prep. She underwent 3 days of clear liquids followed by a prolonged colonic prep.] [facility] Medical History Post-menopausal Diabetes Back pain Dietary restriction Difficulty swallowing History of pain when walking History of edema Arthritis GERD (gastroesophageal reflux disease) Non-smoker History of stress test History of irregular heartbeat Home Medications Medication Instructions Recorded Last Taken Type digoxin 250 mcg (0.25 mg) tablet 250 mcg PO 1500 01/10/23 Unknown History diltiazem HCl 120 mg capsule,24 120 mg PO 1500 01/10/23 02/18/25 History hr,extended release omeprazole 20 mg capsule,delayed 20 mg PO 1500 01/10/23 02/18/25 History release venlafaxine 75 mg capsule,extended 75 mg PO 1500 01/10/23 02/18/25 History release 24 hr ascorbic acid (vitamin C) 500 mg 500 mg PO DAILY 12/18/24 02/17/25 History capsule sodium sul 1.479 gram-potas ch See Rx Instructions PO PER PKG DIR 12/18/24 Unknown Rx 0.188 gram-magnes sul 0.225 gram #24 tabs tablet (Sutab) aspirin 81 mg capsule 81 mg PO QODAY 02/13/25 02/14/25 History cholecalciferol (vitamin D3) 125 125 mcg PO DAILY 02/13/25 02/16/25 History mcg (5,000 unit) tablet (Vitamin D3) magnesium 250 mg tablet 250 mg PO DAILY 02/13/25 Unknown History naproxen 500 mg tablet 500 mg PO BID PRN PRN pain 02/13/25 Unknown History Allergy/AdvReac Type Severity Reaction Status Date / Time nickel Allergy Mild Other Verified 04/02/25 13:31 Surgical History Hx of colonoscopy Hx of total hip arthroplasty Hx of total knee arthroplasty History of lateral meniscus repair of right knee History of laparoscopy History of D&C History of oophorectomy History of tonsillectomy History of History of knee replacement History of back surgery Social History Smoking Status: Never smoker ROS Constitutional Constitutional: Denies fatigue, fever(s), poor appetite, weight gain or weight loss Gastrointestinal Gastrointestinal: Denies belching, bloating, change in bowel habits, change in stool character, chewing difficulty, coffee ground emesis, constipation, cramping, diarrhea, dyspepsia, dysphagia, early satiety, excessive flatus, fecal incontinence, heartburn, hematemesis, hematochezia, hemorrhoids, loose stools, melena, nausea, odynophagia, rectal bleeding, tenesmus, vomiting or weight changes Physical Exam Const alert, oriented x3, no apparent distress and healthy appearing General Appearance: cooperative GI normal to inspection, nondistended, normoactive bowel sounds, soft to palpation, non-tender and non-distended Percussion: normal to percussion Rectal Exam: deferred Assessment & Plan Assessment/Plan (1) Constipation: (2) Encounter for screening colonoscopy: PLAN: She was explained alternatives, risk and benefits including withstanding bleeding, infection, sepsis, perforation, need for emergent urgent . She will have an ASA of 3. D/C Safety Score for UGIB Assessment Inola-Blatchford Bleeding Score (GBS): Stratifies upper GI bleeding patients who are "low-risk" and candidates for outpatient management. Score Interpretation: Score of 0: A GBS of 0 is a “Low Risk” GI bleed, and is highly sensitive (99.6% in a 2007 retrospective study) for predicting which patients did not require any “medical intervention”: blood transfusion, endoscopy, or surgery. This was confirmed in a 2009 Lancet study where patients with a score of 0 were actually discharged and had no GI bleeding mortality at 6 month followup Score above 0: A GBS greater than zero suggests a “High Risk” GI bleed that is likely to require “medical intervention”: transfusion, endoscopy, or surgery. A higher GBS also correlated with a higher likelihood of needing intervention Scores >/= 6 are associated with >50% risk of needing intervention D/C Safety Score for LGIB Assessment Assessment Tool: Readmission and adverse event risk in patients with acute lower GI bleeding. Score Interpretation: Probability Percentage of safe discharge (absence of rebleeding, blood transfusion, therapeutic intervention, 28 day readmission, or ) Score of 8 or below: Consider discharge, with appropriate precautions. Score of 9 or above: Discharge NOT recommended. Consider admission with further workup and resuscitation as necessary.
[2025-04-02] MEDS: Lactated Ringers 1,000 ML 15 ML IV (13:38)
--- NOTE | 2025-04-02 13:52 | PRE.ANES_ITS ---
ASA Classification* ASA Classification ASA Classification: 3 (HTN, GERD, on 2 antiarrhythmic drugs since , stable) Assessment & Plan Anesthesia* Anesthesia Assessment Anesthesia Assessment: Discussed sedation and/or anesthesia options, risks, benefits, and alternatives with patient/parents/legal guardian/POA. Questions invited. The patient/parents/legal guardian/POA seems to understand and agrees to proceed with anesthesia plan. Reviewed the physical assessment, medical history, allergy history and patient home medications list prior to surgery/procedure/anesthetic and documented any changes. Performed airway and anesthesia risk assessments. Anesthesia Type Anesthesia Type: MAC History Source History Obtained from:: Patient and Chart Anesthesia Focused Assessment* Temperature: 98.8 F Pulse Rate: 63 Blood Pressure: 130/78 Respiratory Rate: 16 Pulse Ox: 97 Oxygen Delivery Method: Room Air Airway Assessment Mouth opens: >3 cm Mallampati Score: II Neck Range of motion (ROM): Full ROM Labs Anesthesia Preop lab: CBC WBC, (4.4-11.0) 8.4 K/mm3 10/11/24, Unknown RBC, (4.2-5.4) 5.27 M/mm3 10/11/24, Unknown Hgb, (12.0-15.0) 16.0 g/dL H 10/11/24, Unknown Hct, (37-47) 48.9 % H 10/11/24, Unknown Plt Count, (150-450) 280 K/mm3 10/11/24, Unknown CHEMISTRY Potassium, (3.3-5.1) 4.5 mmol/L 10/11/24, Unknown Sodium, (133-145) 138 mmol/L 10/11/24, Unknown Magnesium, (1.6-2.6) 2.3 mg/dL 01/18/23, 06:15 BUN, (4-19) 20 mg/dL H 10/11/24, Unknown Creatinine, (0.70-1.20) 0.83 mg/dL 10/11/24, Unknow n Glucose, (70-99) 102 mg/dL H 10/11/24, Unknown POC Glucose, (74-106) 116 mg/dL H 01/18/23, 06:06 TSH, (0.358-3.74) 1.46 uIU/mL 06/23/23, 12:20 COAG PT, (11.7-14.9) 13.4 SECONDS 10/11/24, Unknown Pre-Assessment Diagnosis/Proposed Procedure Planned Operative Procedure(s): COLONOSCOPY Anesthesia History Anesthesia History - activities specialist: Anesthesia History - activities specialist Hx Hospitalization No 03/31/25 11:38 Any Problems With Anesthesia No 03/31/25 11:38 Cholinesterase deficiency No 03/31/25 11:38 You/Your Family Experience No 03/31/25 11:38 fever (hyperthermia) with Relationship Recent Exposure to Contagious No 02/19/25 07:48 Disease Does patient have nerve No 03/31/25 11:38 stimulator Patient instructed to have device shut off --Does patient have Pacemaker No 04/02/25 13:32 or ICD? When Was Last Pacemaker Check QUESTION #4 FULL TEXT: You/Your Family Experience fever (hyperthermia) with Anesthesia Last Oral Intake Last Oral intake: Last Oral Intake NPO since 10:30 04/02/25 13:32 Meds taken in AM with sips of No 04/02/25 13:32 water? Meds patient instructed to take am of surgery PONV PONV - activities specialist: PONV - activities specialist Female Yes 03/31/25 11:38 HX of Motion Sickness No 03/31/25 11:38 HX of N/V After Surgery No 03/31/25 11:38 Non-Smoker Yes 03/31/25 11:38 Duration of Surgery greater No 03/31/25 11:38 than 60 minutes Number of Risk Factors 2 03/31/25 11:38 PONV Score Moderate Risk 03/31/25 11:38 Height & Weight Height & Weight: Anesthesia: Height & Weight Height 5 ft 11 in 04/02/25 13:32 Weight: 87 kg 04/02/25 13:32 Body Mass Index (BMI) 26.7 04/02/25 13:32 Respiratory Assessment Respiratory Assessment - activities specialist: Respiratory Tract Infection Hx - activities specialist Hx Respiratory Tract Infection No 03/31/25 11:38 STOP Sleep Apnea STOP Sleep Apnea - activities specialist: STOP Sleep Apnea - activities specialist Hx Hypertension No 03/31/25 11:38 Hx Sleep Apnea No 03/31/25 11:38 CPAP BIPAP Do you snore loudly (louder No 03/31/25 11:38 than talking or can be heard Do you often feel tired/ No 03/31/25 11:38 fatigued/ sleepy during daytime? Has anyone observed you stop No 03/31/25 11:38 breathing during sleep? STOP Results Negative 03/31/25 11:38 QUESTION #5 FULL TEXT : Do you snore loudly (louder than talking or can be heard through closed doors)? 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 Specify any problems Hx of Preganancy in last 3 No 03/31/25 11:38 Months Nurse Filling Out Transfusion VCHRISTIN 03/31/25 11:38 & Questions: Date: 03/31/25 03/31/25 11:38 Time: 11:39 03/31/25 11:38 Patient unable to answer at this time (ie. confused, unrespo /Reproduction History /Reproductive History - activities specialist: /Reproductive Hx- activities specialist Hx Now No 03/31/25 11:38 Gestational Age (in weeks): EDC: Hx Hx Para Hx Section SAB No 03/31/25 11:38 Does the father of the baby or his family experience fever w Father of the baby Malignant Hypertension history comment Active Medications Active Medications: Current Medications Generic Name Dose Route Start Last Admin Trade Name Freq PRN Reason Stop Dose Admin Lactated Ringer's 1,000 mls @ 15 mls/hr 04/02/25 13:30 04/02/25 13:38 IV 15 mls/hr .Q48H SANTOSH Administration PFSH Medical History Post-menopausal Diabetes Back pain Dietary restriction Difficulty swallowing History of pain when walking History of edema Arthritis GERD (gastroesophageal reflux disease) Non-smoker History of stress test History of irregular heartbeat Home Medications Medication Instructions Recorded Last Taken Type digoxin 250 mcg (0.25 mg) tablet 250 mcg PO 1500 01/10 Unknown History diltiazem HCl 120 mg capsule,24 120 mg PO 1500 3 02/18/25 History hr,extended release omeprazole 20 mg capsule,delayed 20 mg PO 1500 3 02/18/25 History release venlafaxine 75 mg capsule,extended 75 mg PO 1500 01/1002/18/25 History release 24 hr ascorbic acid (vitamin C) 500 mg 500 mg PO DAILY 12/1802/17/25 History capsule sodium sul 1.479 gram-potas ch See Rx Instructions PO PER PKG DIR 12/18/24 Unknown Rx 0.188 gram-magnes sul 0.225 gram #24 tabs tablet (Sutab) aspirin 81 mg capsule 81 mg PO QODAY 02/13/2501/21 History cholecalciferol (vitamin D3) 125 125 mcg PO DAILY 01/2102/16/25 History mcg (5,000 unit) tablet (Vitamin D3) magnesium 250 mg tablet 250 mg PO DAILY 02/13/25 Unk nown History naproxen 500 mg tablet 500 mg PO BID PRN PRN pain 0 02/13/25 Unknown History Allergy/AdvReac Type Severity Reaction Status Date / Time nickel Allergy Mild Other Verified 04/02/25 13:31 Surgical History Hx of colonoscopy Hx of total hip arthroplasty Hx of total knee arthroplasty History of lateral meniscus repair of right knee History of laparoscopy History of D&C History of oophorectomy History of tonsillectomy History of History of knee replacement History of back surgery Social History Smoking Status: Never smoker Review of Systems (Anesthesia) ROS Narrative System reviewed and no additional complaints, except as documented. Physical Exam Const alert, oriented x3 and average body habitus Resp normal respiratory effort, normal air movement and clear to auscultation bilaterally Cardio regular rate, regular rhythm and no murmurs; Negative for diaphoretic
--- NOTE | 2025-04-02 14:15 | COLBX_PTH ---
PATIENT: HAYDEN CASTORENA LOC: EN U#:[id number] AGE/SX: 74/F ROOM: RE04/02/[address]: Dr. Catrachito Claros DO : 1950 BED: DIS: 04/02/2025 SPEC #: [id number] RECD: 04/03/25 07:12 STATUS: TA REQ #: [id number] JESSY: 04/02/25 14:[address]: Catrachito Claros DEPT: SURGICAL PATHOLOGY RECD BY: Jaciel Stoddard ENTERED: 04/03/25 10:19 SP TYPE: COLON BX OTHR DR: Dr. Kacey Miller DO Tissues: A - Cecum, NOS Procedures: Surgery Specimen Level IV HEADER OPERATION: Colonoscopy with biopsy PRE-OP DIAGNOSIS: Constipation, encounter for screening colonoscopy TISSUE SUBMITTED: A- Cecal polyp MICROSCOPIC DIAGNOSIS A. Large intestine, cecal polyp, biopsy: - Artefactually distorted colonic mucosa with focal serrated features, suggesting a sessile serrated adenoma MICROSCOPIC DESCRIPTION Slides are reviewed. GROSS DESCRIPTION A. Received in fixative is one container labeled with the patient's name and designated "Cecal polyp." The specimen consists of multiple irregular fragments of kapoor tissue that in aggregate measure 1.6 x 1 x 0.2 cm, admixed with flocculent material. The specimen is totally submitted in one cassette. MS 04/03/2025 CPT:28416
--- NOTE | 2025-04-02 16:00 | OP.PROVAT_ITS ---
04/02/2025 Kacey Miller Re : Colonoscopy procedure for Margo Zamarripa Dear Paul This procedure was performed on Wednesday, April 02, 2025. My impressions and recommendations are as follows: Impressions : - Preparation of the colon was fair. - Diverticulosis in the recto-sigmoid colon and in the sigmoid colon. - Five 10 mm polyps in the cecum, removed with a hot snare. Resected and retrieved. - Redundant colon. Recommendations : - Discharge patient to home. - Resume previous diet. - Continue present medications. - Await pathology results. - Repeat colonoscopy in 3 years for surveillance. My findings are described in the full procedure note, which is enclosed. If I can be of further assistance, please feel free to contact me at . Sincerely, Catrachito Claros, 04/02/2025 4:00:04 PM This report has been signed electronically.
--- NOTE | 2025-04-02 16:00 | OP.COLON_ITS ---
Patient Name: Margo Zamarripa Procedure Date: 04/02/2025 3:12 PM Date of : 1950 Age: 74 Procedure: Colonoscopy Indications: High risk colon cancer surveillance: Personal history of colonic polyps Providers: Catrachito Claros DO Referring MD: Kacey Miller Medicines: Monitored Anesthesia Care Patient Profile: This is a 74 year old female. Refer to note in patient chart for documentation of history and physical. Last Colonoscopy: 5 years ago. Complications: No immediate complications. Procedure: Pre-Anesthesia Assessment: - Prior to the procedure, a History and Physical was performed, and patient medications and allergies were reviewed. The patient is competent. The risks and benefits of the procedure and the sedation options and risks were discussed with the patient. All questions were answered and informed consent was obtained. Patient identification and proposed procedure were verified by the physician in the pre-procedure area. Mental Status Examination: alert and oriented. Respiratory Examination: clear to auscultation. CV Examination: normal. Prophylactic Antibiotics: The patient does not require prophylactic antibiotics. Prior Anticoagulants: The patient has taken no anticoagulant or antiplatelet agents. ASA Grade Assessment: II - A patient with mild systemic disease. After reviewing the risks and benefits, the patient was deemed in satisfactory condition to undergo the procedure. The anesthesia plan was to use monitored anesthesia care (MAC). Immediately prior to administration of medications, the patient was re-assessed for adequacy to receive sedatives. The heart rate, respiratory rate, oxygen saturations, blood pressure, adequacy of pulmonary ventilation, and response to care were monitored throughout the procedure. The physical status of the patient was re-assessed after the procedure. After I obtained informed consent, the scope was passed under direct vision. Throughout the procedure, the patient's blood pressure, pulse, and oxygen saturations were monitored continuously. The Colonoscope was introduced through the anus and advanced to the cecum, identified by appendiceal orifice and ileocecal valve. The colonoscopy was performed without difficulty. The patient tolerated the procedure well. The quality of the bowel preparation was fair. The ileocecal valve, appendiceal orifice, and rectum were photographed. Scope In: 3:22:53 PM Scope Withdrawal Time 0 hours 20 minutes 11 seconds Scope Out: 3:53:42 PM Total Procedure Duration Time 0 hours 30 minutes 49 seconds Findings: The perianal and digital rectal examinations were normal. A few small-mouthed diverticula were found in the recto-sigmoid colon and sigmoid colon. Five sessile polyps were found in the cecum. The polyps were 10 mm in size. These polyps were removed with a hot snare. Resection and retrieval were complete. Verification of patient identification for the specimen was done. Estimated blood loss was minimal. The sigmoid colon and hepatic flexure were grossly redundant. Impression: - Preparation of the colon was fair. - Diverticulosis in the recto-sigmoid colon and in the sigmoid colon. - Five 10 mm polyps in the cecum, removed with a hot snare. Resected and retrieved. - Redundant colon. Recommendation: - Discharge patient to home. - Resume previous diet. - Continue present medications. - Await pathology results. - Repeat colonoscopy in 3 years for surveillance. Procedure Code(s): --- Professional --- 78407, Colonoscopy, flexible; with removal of tumor(s), polyp(s), or other lesion(s) by snare technique CPT copyright 2021 [employer]. All rights reserved. The codes documented in this report are preliminary and upon low heel builder review may be revised to meet current compliance requirements. Catrachito Claros DO 04/02/2025 4:00:04 PM This report has been signed electronically. Number of Addenda: 0 Note Initiated On: 04/02/2025 3:12 PM
--- NOTE | 2025-04-02 16:04 | PCM.POST.ANE ---
Anesthesia: Postop Eval I Current Vital Signs Temperature: 98 F Pulse Rate: 56 Blood Pressure: 111/66 Respiratory Rate: 16 Pulse Ox: 97 Oxygen Delivery Method: Room Air Assessment Airway patent: Yes Spontaneous unlabored respirations: Yes Mental status: Asleep nausea: No Vomiting: No Anesthesia Complication: No Fluid Hydration Crystalloid volume administer (ml): 900 Total IV fluid infused: 900 Progress Note Anesthesia document: Postop Eval 1 completed: Yes
--- NOTE | 2025-04-02 16:25 | PCM.POSTANE2 ---
Anesthesia Postop Eval I Sum Postop Eval Completion status Anesthesia document: Postop Eval 1 completed: Yes Anesthesia Postop Eval I Summary Anesthesia Postop Eval I Summary: Anesthesia Postop Eval I: Assessment Summary Airway patent Yes 04/02/25 16:05 [email or web address] Spontaneous unlabored Yes 04/02/25 16:05 [email or web address] respirations Mental status Asleep 04/02/25 16:05 [email or web address] nausea No 04/02/25 16:05 [email or web address] Vomiting No 04/02/25 16:05 [email or web address] Anesthesia Postop Eval I: Fluid Summary Crystalloid volume administer 900 04/02/25 16:05 [email or web address] (ml) Colloids volume administered ( ml) Blood Product volume administered (ml) Total IV fluid infused 900 04/02/25 16:05 [email or web address] Anesthesia Postop Eval I: Summary Notes Anesthesia Complication No 04/02/25 16:05 [email or web address] Anesthesia Complication Comment: Post-operative progress note Anesthesia: Postop Eval II Evaluation Mental status: Awake Pain Level: 0 nausea: No Vomiting: No Complications Anesthesia Complication: No
== END 2025-04-02 16:47 | disposition home or self-care (01) ==
LOC: EN 13:16 → AC 13:20
PROVIDERS: PCP Internal Medicine; Referring Provider Internal Medicine; Visit Provider Internal Medicine Gastroenterology
DX: Z12.11 Encounter for screening for malignant neoplasm of colon (principal); E11.9 Type 2 diabetes mellitus without complications; Q43.8 Other specified congenital malformations of intestine; Z86.0100 Personal history of colon polyps, unspecified; K21.9 Gastro-esophageal reflux disease without esophagitis; K63.5 Polyp of colon
CPT/HCPCS: 45385; 88305; J2405